=== PATIENT | female | born 1945 | race Two or more races ===

== ENCOUNTER 2024-09-14 11:08 | Inpatient (IN) | payer MEDICARE, MEDICAID, SELFPAY ==
[2024-09-14] VITALS (67 sets, daily range): BP systolic 68–149; BP diastolic 40–83; PULSE 84–122; RESP 10–29; TEMP 36.8–38.6; O2SAT 68–100; BMI 20.2; BMI 21.1
--- NOTE | 2024-09-14 11:07 | PD.EDAMS ---
Altered Mental Status RME/HPI General Chief Complaint: Altered Mental Status Stated Complaint: AMS RME / HPI RME / HPI narrative: 79 year old female with history of diabetes and liver cirrhosis presents to the ED BIBA from home for altered mental status today. Per medics, family on scene reported finding the patient altered and unresponsive this morning. On their arrival, patient was unresponsive, hot to touch, jaw clenched, and saturating 68% on room air. States they began bagging via BVM with improvement. Patient then placed on a 15L Oxy Mask and saturating 97%. Patient was last known well last night. Prehospital BS High , blood pressure 130/92, and HR 102. Family reported the medics that at baseline the patient gets up to walk in the mornings. 1140: I spoke with patients daughter at bedside. Reports at baseline the patient gets up in the mornings and walks around her home. This morning noted she did not get up and found to be unresponsive laying in bed with what appeared to be coffee ground drool coming from the mouth. Daughter additionally reported yesterday the patient was not getting out of bed as often as she normally does and last night chest sounded gurgly ; patient was given Robitussin prior to going to sleep. Related Data Home Medications ?Medication ?Instructions ?Recorded ?Confirmed metformin 850 mg tablet 850 mg PO QDAY 01/23/19 02/25/24 donepezil 10 mg tablet 10 mg PO QDAY 10/20/19 02/25/24 escitalopram oxalate 20 mg tablet 20 mg PO QDAY 10/20/19 02/25/24 (Lexapro) spironolactone 50 mg tablet 50 mg PO QDAY 10/20/19 02/25/24 (Aldactone) ursodiol 300 mg capsule 300 mg PO BID 10/20/19 02/25/24 gabapentin 300 mg capsule 300 mg PO BID 01/06/21 02/25/24 lactulose 10 gram/15 mL oral 30 ml PO BID 01/06/21 02/25/24 solution montelukast 10 mg tablet 10 mg PO QDAY 01/06/21 02/25/24 pantoprazole 20 mg tablet,delayed 20 mg PO DAILY 01/06/21 02/25/24 release rifaximin 550 mg tablet (Xifaxan) 550 mg PO BID 01/06/21 02/25/24 Previous Rx's ?Medication ?Instructions ?Recorded nystatin 100,000 unit/gram topical 1 applic topical QDAY #15 grams 06/09/23 powder cephalexin 500 mg capsule 500 mg PO QID #40 caps 02/21/24 Allergies Allergy/AdvReac Type Severity Reaction Status Date / Time adhesive tape Allergy Verified 02/24/24 23:38 Review of Systems Review of Systems ROS Unobtainable: unobtainable due to mental status Past Medical History Past Medical History NEUROLOGIC: Positive Peripheral Neuropathy CARDIAC: Positive Hypercholesterolemia and Hypertension RESPIRATORY: Positive Bronchitis, Pneumonia and Sleep Apnea (has cpap) GASTROINTESTINAL: Positive Gastrointestinal Disorders, Cirrhosis, Gall Bladder Disease, Esophageal Varices and Gastroesophageal Reflux Disease MUSCULOSKELETAL: Positive Musculoskeletal Disorders and Osteoporosis ENT: Positive Cataracts ENDOCRINE: Positive Endocrine Disorders and Diabetes Mellitus Type 2 HEMATOLOGIC: Positive Blood Disorders and Anemia PSYCHO/SOCIAL: Positive Depression and Anxiety OTHER HISTORY: Positive Hospitalization, Chicken Pox, Measles and Mumps Family History FAMILY HISTORY: Negative Family Psychiatric Problems, Family Respiratory Disorders, Family Cardiac Disorders, Family Gastrointestinal Problems, Family Cancer, Family Surgery or Family Anesthesia Reaction Surgical History SURGICAL: Positive Throat Surgery, Hysterectomy and Section Social History SMOKING STATUS: Never smoker SECOND HAND EXPOSURE: No SUBSTANCE USE: does not use ED Exam Narrative Physical exam: GENERAL APPEARANCE: On arrival to the emergency department, patient is altered, unresponsive, nonverbal. VITALS: All vitals were reviewed, patient is febrile at 101.4F rectally. The pulse ox is 74% on room air which is hypoxic, 100% on mechanical ventilator. HEENT: Normocephalic, atramatic, no spontaneous eye movements, EACs are patent. There is no bulge or retraction. Coffee ground emesis in mouth. Moist oromucosa. No jaundice. NECK: Supple, no JVD or bruits. CARDIOVASCULAR: Heart regular without S3-S4 or murmur. No rubs or gallops. LUNGS/CHEST: Rhonchi bilaterally, agonal breathing. No rales, rhonchi, or wheezing. ABDOMEN: Soft, nontender, with normal bowel sounds. No pulsatile masses. No rebound, rigidity, or guarding. No incarcerated hernia. EXTREMITIES: No edema, clubbing, or cyanosis. Intact CSM SKIN: Warm and dry without rashes. Normal inspection. MUSCULOSKELETAL: No gross deformity. NEURO: GCS 7, on arrival patient is altered, unresponsive, nonverbal, no eye movements, minimal retraction on stimulation of hands and feet. Course Quality Measures Current suspected stage: sepsis Possible source: pulmonary Blood cultures ordered: completed in ED Antibiotic ordered: Yes Pertinent labs: 09/14/24 11:52 Lactic Acid 12.5 H* mMol/L (0.4-2.0) Procalcitonin 1.51 H ng/ml (0.0-0.49) sepsis Orders Category Date Time Status 24 HR Medical Restraints Q2HR Care 09/14/24 11:24 Active Bedside COVID-19 Antigen Test NOW Care 09/14/24 11:33 Active Bedside Influenza A&B Antigen Test NOW Care 09/14/24 11:36 Completed EKG (ED ONLY) *Do not use* NOW Care 09/14/24 11:47 Completed Joshi [Urinary Catheter] QS Care 09/14/24 11:24 Active Joshi [Urinary Catheter] QS Care 09/14/24 11:33 Completed Insert NG / OG tube NOW Care 09/14/24 11:25 Active Intubation NOW Care 09/14/24 11:23 Completed Intubation NOW Care 09/14/24 11:51 Completed Occult Blood,Stool (Nursing) NOW Care 09/14/24 11:[address] chest abdomen pelvis wo Stat Exams 09/14/24 11:[address] head/brain wo con Stat Exams 09/14/24 11:33 Completed EKG (ED Only) Stat Exams 09/14/24 11:47 Draft XR chest 1V portable Stat Exams 09/14/24 11:23 Completed ABG [Arterial Blood Gas] Stat Lab 09/14/24 11:43 Ordered ABO/RH Type Stat Lab 09/14/24 11:52 Completed Alcohol, Blood Medical Stat Lab 09/14/24 11:52 Completed Ammonia Stat Lab 09/14/24 11:52 Completed Arterial Blood Gas Stat Lab 09/14/24 13:24 Completed BNP [B-Type Natriuretic Peptide] Stat Lab 09/14/24 11:52 Completed Blood Culture (Lab) Stat Lab 09/14/24 11:50 Received CBC Stat Lab 09/14/24 11:52 Completed Comprehensive Metabolic Panel Stat Lab 09/14/24 11:52 Completed Drug Screen,Urine Stat Lab 09/14/24 12:00 Completed Ketone [Beta Hydroxybutyrate] Stat Lab 09/14/24 11:52 Completed Lactic Acid [Lactate (Lactic Acid)] Stat Lab 09/14/24 11:52 Results Occult Blood, Stool (LAB) Stat Lab 09/14/24 11:00 Completed PTT [Partial Thromboplastin Time] Stat Lab 09/14/24 11:52 Completed Procalcitonin Stat Lab 09/14/24 11:52 Completed Prothrombin Time with INR Stat Lab 09/14/24 11:52 Completed Sputum Culture and Gram Stain Routine Lab 09/14/24 14:11 Received Troponin I Stat Lab 09/14/24 11:52 Completed UA, C/S IF [Urinalysis, C/S if Indicated] Stat Lab 09/14/24 12:00 Completed Urine Culture Stat Lab 09/14/24 12:00 Received Acetaminophen Supp [Tylenol Supp] Med 09/14/24 11:33 Discontinued 650 mg KS X1 ONE Etomidate Inj [Amidate Inj] Med 09/14/24 11:06 Discontinued 20 mg IVP X1 ONE Insulin Reg 100 Units/100 ml [Myxredlin] Med 09/14/24 13:04 Active 100 unit in 100 ml IV 0.1 unit/kg/hr Insulin Regular Med 09/14/24 11:39 Discontinued 4.5 unit IV X1 ONE Ringers Lactated 1000 ml [Lactated Ringers] 1,000 ml Med 09/14/24 14:15 Active IV 999 mls/hr Sodium Chloride 0.9% 1000 ml [Ns] 1,350 ml Med 09/14/24 11:34 Discontinued IV 999 mls/hr Sodium Chloride Rt Paulina 10% [NS Rt Paulina 10%] Med 09/14/24 11:51 Discontinued 5 ml INH X1 ONE Sterile Water 10 ml Med 09/14/24 11:04 Discontinued .ROUTE .STK-MED Sterile Water 10 ml Med 09/14/24 11:12 Discontinued .ROUTE .STK-MED Vecuronium Inj [Norcuron Inj] Med 09/14/24 11:14 Discontinued 20 mg IV X1 ONE Vecuronium Inj [Norcuron Inj] Med 09/14/24 11:04 Discontinued 40 mg .ROUTE .STK-MED ONE Vecuronium Inj [Norcuron Inj] Med 09/14/24 11:06 Discontinued 40 mg IV X1 ONE cefTRIAXone/D5w 1gm IV premix [Rocephin/D5w 1gm IV Med 09/14/24 11:35 Discontinued premix] 50 ml IV X1 Sputum Induction PRN RT 09/14/24 12:00 Ordered Volume Ventilator Stat RT 09/14/24 11:51 Active Vital Signs Vital signs: Vital Signs Pulse Rate 122 H 09/14/24 11:05 Respiratory Rate 13 09/14/24 11:05 Pulse Oximetry (%) 100 09/14/24 11:05 Oxygen Delivery Method Ambu-Bag 09/14/24 11:05 Procedures -ED Intubation sedative: Etomidate Mg Given: 20 paralytic: Vecuronium Mg Given: 20 Laryngoscope: fiber optic video scope Assist Device Used: fiber optic device ET Tube Size: 7.5 ET Tube Uncuffed: No Tube Secured Depth (cm): 21 Tube Secured Location: teeth Tube Placement Confirmation: visualized tube passing through cords, equal breath sounds bilaterally, no breath sounds over epigastrium and confirmation by capnometry Patient Tolerated Procedure: well and no complications Intubation Complications: none Altered Mental Status MDM Narrative MDM Narrative:: Kimber Beavers am scribing for and in the presence of Dr. Josue. The patient presented to the emergency department, having been brought in by ambulance from home. Patient was GCS of 7. No spontaneous eye opening. Positive for spontaneous movement of arms and legs. But nonverbal. And she was breathing agonal he. With an O2 saturation of 70 something percent on room air. Therefore she need to be intubated. The patient was given etomidate 20 mg IV followed by vecuronium 20 mg IV. The patient was intubated with a size 7-1/2 ET tube. ET tube was inserted by by the glleidoscope technique. Positive for CO2 hand-held monitor color change. O2 saturation went up to as high as 100% on the vent. Both lungs well-expanded accordingly. And there is no stomach air bubble. Follow-up chest x-ray showing that the ET tube and OG tube were both in good position. There is a scatter what appeared to be infiltrates. Heart is borderline. Mediastinum is normal. No pneumothorax. No broken bones. Patient was found to have a temperature 101.4. An septic alert was called for. And treatment plan was accordingly including IV fluid, IV antibiotics and Tylenol. From which she did very well. We also noticing that the patient had coffee-ground material in her mouth and on the lips. This is confirmed by the patient's daughter. Rectal examination was done in the presence of female RN. It shows a yellow stool. Guaiac was negative for blood. Twelve-lead EKG at 11:52 AM by me: Sinus rhythm. Heart rate 108. Normal axis. ST segment elevation in leads II, III, aVF and V1, V2, V3, V4, V5 and V6. 12 PM, I spoke to and discussed with Dr. Miramontes, crop duster helper on-call. He said that patient is not a candidate for the cardiac Disability Case Manager. We can go ahead and admit the patient here to our ICU. And he will continue to consult. 1200: Heart alert activated. WBC count of 17,000. Sodium is 160 and chloride was 110 and BUN/creatinine are elevated with a creatinine of 2.8. Normal bicarb. Anion gap is high. Beta hydroxy is slightly elevated at 0.6. Blood sugar 739. Signifying that the patient had a severe diabetic hyperglycemia with mild ketone buildup. But no previous sign of DKA at this time. In any event patient did require some IV fluid which he was also given as part of the septic protocol. I am giving her some insulin and insulin drip. Toxicology negative. Alcohol level negative. Lactic acid was elevated and procalcitonin are elevated as expected by her presentation with sepsis. Troponin is 17. As expected with the EKG finding. Ammonia level is 111 as expected with symptomatology and liver cirrhosis status. 1:20 PM, I spoke to and discussed with Dr. Malone, engagement specialist on-call. She is here to evaluate the patient for admission. Patient is pending CT brain and CT chest abdomen and pelvic. 2:[address] brain [address] CT chest abdomen and pelvic have resulted. Please see report from Dr. Bipin Pearson. Basically it shows negative CT brain and positive for pneumonia and positive for cirrhosis of the liver. I spoke to Dr. Malone again. She has seen the patient and she has agreed to admit the patient for further evaluation and treatment in ICU. Thank very much Critical care time is approximately 45 minutes excluding any procedure. The high probability of sudden, clinically significant deterioration in the patient?s condition required the highest level of my preparedness to intervene urgently. The services I provided to this patient were to treat and/or prevent clinically significant deterioration. Services included the following: chart data review, reviewing nursing notes and/or old charts, documentation time, mgmt consultant collaboration regarding findings and treatment options, medication orders and management, direct patient care, vital sign assessments and ordering, interpreting and reviewing diagnostic studies and lab tests. Aggregate critical care time includes only time during which I was engaged in work directly related to the patient?s care, as described above, whether at bedside or elsewhere in the Emergency Department. It did not include time spent performing other reported procedures or the services of residents, students, nurses or physician assistants. Patient data External records reviewed:: EMS form Clinical information provided by:: EMS Social determinants that could affect healthcare access:: none Patient has the following chronic illnesses:: Liver cirrhosis, diabetes, dementia How is presenting disease/condition affected by chronic disease/condition?: exacerbated by Evaluation data The following diagnostics were reviewed and interpreted by me:: lab results, radiology exam(s) and EKG tracing(s) Lab and/or radiology exams considered but not ordered:: None Interpretation Summary: Ordering Physician: Mirza Josue MD Date of Service: 09/14/24 Procedure(s): XR chest 1V portable Accession Number(s): [id number] cc: Jose Hanson MD; Bipin Pearson MD; Mirza Josue MD~ Examination: AP chest single view Technique one AP portable supine chest single view Exam date and time: September 14, 2024 1141 hours Comparison August 28, 2019 INDICATIONS: Hypoxic respiratory failure postintubation today FINDINGS: Normal heart size Significant bilateral lung opacity Endotracheal tube tip 2.5 cm above jhonny The orogastric tube is in the stomach, the tip is below the level film Prominent osteopenia IMPRESSION: Significant bilateral pneumonia Endotracheal tube tip 2.5 cm above jhonny Dictated By: Bipin Pearson MD Signed By: <Electronically signed by Bipin Pearson MD in [place]> 09/14/24 1153 Ordering Physician: Mirza Josue MD Date of Service: 09/14/24 Procedure(s): CT head/brain wo con Accession Number(s): [id number] cc: Jose Hanson MD; Bipin Pearson MD; Mirza Josue MD~ Examination: CT brain head without contrast. 2-D sagittal coronal reconstructions Date and time of exam:September 14, 2024 1831 hours INDICATIONS: Altered mental status today, hypoxic respiratory failure postintubation CTDI: vol (mGy):44.6 DLP: (mGycm):851 Technique: Multiple CT axial sections of the brain have been obtained, 5 mm slice thickness. Contrast has not been administered. 2-D sagittal, coronal reconstructions have been obtained Low dose protocols were performed. One or more of the following dose reduction techniques were used; automated exposure control, adjustment of the mA and/or KV according to patient size, use of iterative reconstruction technique. Findings: No significant ventricular enlargement. Intra-axial or extra-axial hemorrhage density is not seen. No mass effect or midline shift Basal cisterns are not remarkable. Fourth ventricle is midline. Cranial vault intact. Small area encephalomalacia in the right frontal lobe, small right frontal calcification 3 mm Impression: Negative for acute hemorrhage, mass effect or midline shift If symptoms persist, consider brain MRI follow-up stroke protocol Dictated By: Bipin Pearson MD Signed By: <Electronically signed by Bipin Pearson MD in [place]> 09/14/24 1354 Ordering Physician: Mirza Josue MD Date of Service: 09/14/24 Procedure(s): CT chest abdomen pelvis wo Accession Number(s): [id number] cc: Jose Hanson MD; Bipin Pearson MD; Mirza Josue MD~ Examination: CT chest, without intravenous contrast. CT abdomen, without intravenous contrast. CT pelvis, without intravenous contrast. 2-D sagittal and coronal reconstructions. 3-D reconstructions. Date and time of exam:September 14, 2024 1336 hours INDICATIONS: Sepsis, unknown etiology today, altered mental status, hypoxic respiratory failure postintubation CTDI vol (mgy) 7.02 DLP (MGycm)477 Technique: Multiple CT images, 3.0 mm slice thickness, obtained chest, abdomen, pelvis, with the high-resolution 64 slice scanner.. Sagittal and coronal 2-D reconstructions are obtained. 3-D reconstructions Low dose protocols were performed. One or more of the following dose reduction techniques were used; automated exposure control, adjustment of the mA and/or KV according to patient size, use of iterative reconstruction technique. Findings: Tracheal tube tip 14 cm above jhonny No thoracic aortic aneurysm dilatation No paratracheal tracheobronchial or bronchopulmonary adenopathy Bilateral pneumonia, prominent at the lung bases Cirrhosis, liver irregular in contour Prominent splenomegaly Portosystemic collateral vessels medial to the spleen Orogastric tube in the stomach No pancreatic or adrenal mass No hydronephrosis Aorta is not enlarged Normal appendix Anteverted uterus Urinary bladder contracted around a Josih catheter Thickening of the rectal wall Severe osteopenia, advanced disc narrowing L3-L4 IMPRESSION: Bilateral pneumonia, significant at the lung bases Cirrhosis Prominent splenomegaly Portal hypertension No abdominal or pelvic abscess Dictated By: Bipin Pearson MD Signed By: <Electronically signed by Bipin Pearson MD in [place]> 09/14/24 1359 Medications / Prescriptions Medications or Prescriptions considered but not ordered:: None Medication administrations:: Medication Administration History Insulin Human Regular (Myxredlin) 100 unit in 100 mls @ 4.536 mls/hr IV .Q22H3M PRN; Protocol PRN Reason: PER PROTOCOL Stop: 10/14/24 13:03 Lactated Ringer's (Lactated Ringers) 1,000 mls @ 999 mls/hr IV .Q1H1M ONE Stop: 09/14/24 15:15 Last Admin: 09/14/24 14:20 Dose: 999 mls/hr Documented By: EH Discontinued Medications Acetaminophen (Acetaminophen Supp 650 Mg Supp) 650 mg KS X1 ONE Stop: 09/14/24 11:34 Last Admin: 09/14/24 12:14 Dose: 650 mg Documented By: KM Etomidate (Etomidate Inj 2 Mg/Ml Vial 10 Ml) 20 mg IVP X1 ONE Stop: 09/14/24 11:07 Last Admin: 09/14/24 11:26 Dose: 20 mg Documented By: Admin: 09/14/24 11:13 Dose: 20 mg Documented By: LUIS Sterile Water (Sterile Water) Confirm Administered Dose 10 mls @ ud .ROUTE .ST-MED ONE Stop: 09/14/24 11:05 Last Admin: 09/14/24 11:27 Dose: Not Given Documented By: LUIS Non-Admin Reason: Duplicate Medication on eMAR Sterile Water (Sterile Water) Confirm Administered Dose 10 mls @ ud .ROUTE .ST-MED ONE Stop: 09/14/24 11:13 Last Admin: 09/14/24 11:26 Dose: Not Given Documented By: LUIS Non-Admin Reason: Duplicate Medication on eMAR Sodium Chloride (Ns) 1,350 mls @ 999 mls/hr IV .Q1H22M ONE Stop: 09/14/24 12:55 Last Infusion: 09/14/24 14:13 Dose: Infused Documented By: Admin: 09/14/24 12:13 Dose: 999 mls/hr Documented By: LUIS Ceftriaxone Sodium/Dextrose (Rocephin/D5w 1gm Iv Premix) 50 mls @ 100 mls/hr IV X1 ONE Stop: 09/14/24 12:04 Last Infusion: 09/14/24 12:55 Dose: Infused Documented By: Admin: 09/14/24 12:14 Dose: 100 mls/hr Documented By: LUIS Insulin Human Regular (Insulin Hum Regular 1 Unit/0.01 Ml (Per Unit)) 4.5 unit 0.1 unit/kg (4.5 unit) IV X1 ONE Stop: 09/14/24 11:40 Last Admin: 09/14/24 12:11 Dose: 4.5 unit Documented By: LUIS Co-signed By: JILLIAN Sodium Chloride (Sodium Chloride Rt 10% 15 Ml Nebu) 5 ml INH X1 ONE Stop: 09/14/24 11:52 Vecuronium Elbert (Vecuronium Inj 10 Mg Vial) 40 mg IV X1 ONE Stop: 09/14/24 11:07 Last Admin: 09/14/24 11:26 Dose: Not Given Documented By: LUIS Non-Admin Reason: Duplicate Medication on eMAR Vecuronium Elbert (Vecuronium Inj 10 Mg Vial) Confirm Administered Dose 40 mg .ROUTE .STK-MED ONE Stop: 09/14/24 11:05 Last Admin: 09/14/24 11:27 Dose: Not Given Documented By: LUIS Non-Admin Reason: Duplicate Medication on eMAR Vecuronium Elbert (Vecuronium Inj 10 Mg Vial) 20 mg IV X1 ONE Stop: 09/14/24 11:15 Last Admin: 09/14/24 11:14 Dose: 20 mg Documented By: LUIS Co-signed By: CHIDI See above Consultations Consultation(s) initiated? (list below): Yes Consultation #1 (Physician, Specialty, Details): I spoke with crop duster helper Dr. Miramontes. Discussed patients PMHx, HPI, ED course, exam findings, labs, and radiology results. States at this time does not think the patient is a candidate for mobile lab technician. Time: 12:02 Consultation #2 (Physician, Specialty, Details): I spoke with chopper gun operator Dr. Malone. Discussed patients PMHx, HPI, ED course, exam findings, labs, and radiology results as noted above. Diagnosis Most likely diagnosis given after review of the tests above:: Sepsis AMS ST elevation NM Acute kidney injury Diabetes Coffee ground emesis UTI Admission Indicated Admission indicated?: indicated Admission Request Was there a request for admission?: Yes Admission Attestation Admission request attestation: Discussed case with [] from Hospitalist service regarding admission. Discussed patients ED course, exam findings, labs, and radiology results. The Hospitalist [agrees,declines] to accept the patient for admission. Disposition Plan Disposition Plan: Admit Critical Care Time Critical Care Time Critical Care Time: Yes Total Critical Care Time (min.): 45 Attestation: The high probability of sudden, clinically significant deterioration in the patient's condition required the highest level of my preparedness to intervene urgently. The services I provided to this patient were to treat and/or prevent clinically significant deterioration. Services included the following: chart data review, reviewing nursing notes and/or old charts, documentation time, mgmt consultant collaboration regarding findings and treatment options, medication orders and management, direct patient care, vital sign assessments and ordering, interpreting and reviewing diagnostic studies and lab tests. Aggregate critical care time includes only time during which I was engaged in work directly related to the patient's care, as described above, whether at bedside or elsewhere in the Emergency Department. It did not include time spent performing other reported procedures or the services of residents, students, nurses or physician assistants. Discharge Plan Plan Patient Disposition: Admit Acute Care w/in Hospital Disposition Comment: Stable and improved for admission Prescriptions/Referrals Prescriptions/Med Rec: No Action metformin 850 mg Tablet 850 mg PO QDAY gabapentin 300 mg Capsule 300 mg PO BID montelukast 10 mg Tablet 10 mg PO QDAY lactulose 10 gram/15 mL Solution 30 ml PO BID Xifaxan 550 mg Tablet 550 mg PO BID pantoprazole 20 mg Tablet,Delayed Release (Dr/Ec) 20 mg PO DAILY donepezil 10 mg Tablet 10 mg PO QDAY ursodiol 300 mg Capsule 300 mg PO BID spironolactone [Aldactone] 50 mg Tablet 50 mg PO QDAY escitalopram oxalate [Lexapro] 20 mg Tablet 20 mg PO QDAY nystatin 100,000 unit/gram powder 1 applic topical QDAY Qty: 15 0RF cephalexin 500 mg capsule 500 mg PO QID Qty: 40 0RF Referrals: Jose Hanson MD [Primary Care Provider] - In 1 week Problem List Clinical Impression: Sepsis, AMS (altered mental status), ST elevation NM (STEMI), Acute kidney injury, Diabetes mellitus out of control, Coffee ground emesis, Urinary tract infection Patient/Caregiver Discharge Instructions Print Language: Albanian Stand Alone Forms: Lizbeth Award Info., Patient Portal Info Letter
[2024-09-14] MEDS: ETOMIDATE INJ 2 MG/ML VIAL 10 ML 20 MG IVP ×2 (11:13→11:26)
[2024-09-14] MEDS: VECURONIUM 10 MG 20 MG IV (11:14)
--- NOTE | 2024-09-14 11:17 | PC.NURSE ---
Dr. Josue with [facility] adnd [facility] to assist and attempt intubation at this time
--- NOTE | 2024-09-14 11:23 | XR_ITS ---
Examination: AP chest single view Technique one AP portable supine chest single view Exam date and time: September 14, 2024 1141 hours Comparison August 28, 2019 INDICATIONS: Hypoxic respiratory failure postintubation today FINDINGS: Normal heart size Significant bilateral lung opacity Endotracheal tube tip 2.5 cm above jhonny The orogastric tube is in the stomach, the tip is below the level film Prominent osteopenia IMPRESSION: Significant bilateral pneumonia Endotracheal tube tip 2.5 cm above jhonny
--- NOTE | 2024-09-14 11:30 | PC.NURSE ---
Daughter María at bedside states patient was unresponsive and called ambulance right away.
--- NOTE | 2024-09-14 11:33 | XR_ITS ---
Examination: CT brain head without contrast. 2-D sagittal coronal reconstructions Date and time of exam:September 14, 2024 1831 hours INDICATIONS: Altered mental status today, hypoxic respiratory failure postintubation CTDI: vol (mGy):44.6 DLP: (mGycm):851 Technique: Multiple CT axial sections of the brain have been obtained, 5 mm slice thickness. Contrast has not been administered. 2-D sagittal, coronal reconstructions have been obtained Low dose protocols were performed. One or more of the following dose reduction techniques were used; automated exposure control, adjustment of the mA and/or KV according to patient size, use of iterative reconstruction technique. Findings: No significant ventricular enlargement. Intra-axial or extra-axial hemorrhage density is not seen. No mass effect or midline shift Basal cisterns are not remarkable. Fourth ventricle is midline. Cranial vault intact. Small area encephalomalacia in the right frontal lobe, small right frontal calcification 3 mm Impression: Negative for acute hemorrhage, mass effect or midline shift If symptoms persist, consider brain MRI follow-up stroke protocol
--- NOTE | 2024-09-14 11:33 | XR_ITS ---
Examination: CT chest, without intravenous contrast. CT abdomen, without intravenous contrast. CT pelvis, without intravenous contrast. 2-D sagittal and coronal reconstructions. 3-D reconstructions. Date and time of exam:September 14, 2024 1336 hours INDICATIONS: Sepsis, unknown etiology today, altered mental status, hypoxic respiratory failure postintubation CTDI vol (mgy) 7.02 DLP (MGycm)477 Technique: Multiple CT images, 3.0 mm slice thickness, obtained chest, abdomen, pelvis, with the high-resolution 64 slice scanner.. Sagittal and coronal 2-D reconstructions are obtained. 3-D reconstructions Low dose protocols were performed. One or more of the following dose reduction techniques were used; automated exposure control, adjustment of the mA and/or KV according to patient size, use of iterative reconstruction technique. Findings: Tracheal tube tip 14 cm above jhonny No thoracic aortic aneurysm dilatation No paratracheal tracheobronchial or bronchopulmonary adenopathy Bilateral pneumonia, prominent at the lung bases Cirrhosis, liver irregular in contour Prominent splenomegaly Portosystemic collateral vessels medial to the spleen Orogastric tube in the stomach No pancreatic or adrenal mass No hydronephrosis Aorta is not enlarged Normal appendix Anteverted uterus Urinary bladder contracted around a Joshi catheter Thickening of the rectal wall Severe osteopenia, advanced disc narrowing L3-L4 IMPRESSION: Bilateral pneumonia, significant at the lung bases Cirrhosis Prominent splenomegaly Portal hypertension No abdominal or pelvic abscess
--- NOTE | 2024-09-14 11:35 | PC.NURSE ---
xray at bedside
--- NOTE | 2024-09-14 11:47 | EKG_ITS ---
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[id number] Requested By: Mirza Josue Order Number: [id number] Reading MD: Mirza Josue Measurements Intervals [place] Rate: 110 P: 59 IL: 149 QRS: 49 QRSD: 68 T: 75 QT: 337 QTc: 456 Interpretive Statements SINUS TACHYCARDIA LOW QRS VOLTAGE IN PRECORDIAL LEADS [QRS DEFLECTION < 1.0 mV IN CHEST LEADS] MARKED ST ELEVATION, CONSIDER INFERIOR INJURY [MARKED ST ELEVATION W/O NORMALLY INFLECTED T WAVE IN II/aVF] MARKED ST ELEVATION, CONSIDER ANTEROSEPTAL INJURY [MARKED ST ELEVATION W/O NORMALLY INFLECTED T WAVE IN V1-V4] ACUTE PA Compared to ECG 01/06/2021 14:45:28 Low QRS voltage now present ST (T wave) deviation now present Myocardial infarct finding now present Sinus bradycardia no longer present T-wave abnormality no longer present /store/S0/[id number].pdf
--- NOTE | 2024-09-14 11:52 | PC.NURSE ---
[employer] at bedside performing ekg.
[2024-09-14 12:02] LABS: OBS Card Lot # 23001; OBS Developer Lot # 23003; OBS Performed By vasqk2; OBS QC OK? Yes; Occult Blood, Stool Positive (Negative)
[2024-09-14 12:03] LABS: Basophils # (Auto) 0.1 Thou/mm3 (0.0-0.2); Basophils % (Auto) 1 % (0-2.5); Eosinophils # (Auto) 0.1 Thou/mm3 (0.0-0.5); Eosinophils % (Auto) 1 % (0-10); Hematocrit 53.5 % (36.0-46.0); Hemoglobin 17.8 g/dL (12.0-16.0); Immature Granulocytes % (Auto) 1 % (0-0); Immature Granulocytes Auto 0.11 Thou/mm3 (0.00-0.00); Lymphocytes # (Auto) 0.4 Thou/mm3 (1.0-4.8); Lymphocytes % (Auto) 3 % (10-50); Mean Corpuscular HGB Conc 33.3 g/dl (31.0-37.0); Mean Corpuscular Hemoglobin 32.7 pg (25.0-35.0); Mean Corpuscular Volume 98 fL (80-100); Monocytes # (Auto) 0.5 Thou/mm3 (0.0-0.8); Monocytes % (Auto) 3 % (0-12); Neutrophils # (Auto) 15.3 Thou/mm3 (1.8-7.7); Neutrophils % (Auto) 92 % (37-80); Nucleated Red Blood Cell % 0 /100 WBC (0); Platelet Count 88 Thou/mm3 (140-440); RDW Standard Deviation 50.5 fL (36.4-46.3); Red Blood Count 5.45 Miln/mm3 (4.00-5.20); White Blood Count 16.6 Thou/mm3 (3.6-11.0)
[2024-09-14 12:07] LABS: Lactate (Lactic Acid) 12.5 mMol/L (0.4-2.0)
[2024-09-14 12:09] LABS: Beta Hydroxybutyrate 0.6 mmol/L (<0.6)
--- NOTE | 2024-09-14 12:10 | PC.NURSE ---
RECEIVED CALL FROM ARA IN LAB WITH CRITICAL LAB RESULTS. LACTIC ACID 12.5, BETAHYDROXY 0.6. ER DOCTOR MADE AWARE.
[2024-09-14 12:11] LABS: Collection Type, Urine Catheter
[2024-09-14] MEDS: INSULIN HUM REGULAR 1 UNIT/0.01 ML (PER UNIT) 4.5 UNIT IV (12:11)
[2024-09-14] MEDS: SODIUM CHLORIDE 0.9% 999 ML IV (12:13)
[2024-09-14] MEDS: cefTRIAXone/D5w 1gm IV premix 50 ML IV (12:14)
[2024-09-14] MEDS: ACETAMINOPHEN SUPP 650 MG SUPP PR (12:14)
[2024-09-14 12:15] LABS: Bacteria,Urine 2+; Bilirubin,Urine Negative (Negative); Blood,Urine Negative (Negative); Clarity,Urine Turbid (Clear/Hazy); Color,Urine Yellow (Lt Yel-Yel); Glucose, Urine 4+ (Negative); Ketones,Urine Trace (Negative); Leukocyte Esterase,Urine Positive (Negative); Nitrite,Urine Negative (Negative); PH,Urine 7.5 (5.0-7.0); Protein,Urine 1+ (Neg - Trace); RBC,Urine 5 /hpf (0-3); Specific Gravity,Urine 1.029 (1.001-1.035); Squamous Epithelial Cell,Urine 6 /hpf (0-5); Urobilinogen,Urine Negative mg/dL (0.0-1.0); WBC,Urine 33 /hpf (0-5)
[2024-09-14 12:16] LABS: Culture Indicated,Urine Yes
[2024-09-14 12:19] LABS: Amphetamine/Methamp Scrn,U Negative (Negative); Barbiturate Screen,Urine Negative (Negative); Benzodiazepines Screen,Urine Negative (Negative); Benzoylecgonine Screen, Ur Negative (Negative); Fentanyl Screen,Urine Negative (Negative); Opiate Screen,Urine Negative (Negative); THC Screen,Urine Negative (Negative)
[2024-09-14 12:23] LABS: Ammonia 111 uMol/L (11-32)
--- NOTE | 2024-09-14 12:34 | PC.NURSE ---
Called RT to help transport patient to ct on ventilator
[2024-09-14 12:44] LABS: Alanine Aminotransferase 38 U/L (10-49); Albumin, Serum 3.3 gm/dL (3.4-4.8); Albumin/Globulin Ratio 0.9 (1.2-2.2); Alcohol, Blood Medical < 3.0 mg/dL (0-10.0); Alkaline Phosphatase 177 U/L (46-116); Anion Gap 24 (7-16); Aspartate Amino Transferase 41 U/L (0-34); BUN/Creatinine Ratio 26 Ratio (12-20); Bilirubin,Total 2.6 mg/dL (0.3-1.2); Blood Urea Nitrogen 74 mg/dL (9-23); Calcium 10.7 mg/dL (8.3-10.6); Calcium (Corrected) 11.3 mg/dL (8.5-10.1); Carbon Dioxide 20.3 mMol/L (20.0-31.0); Chloride 116 mMol/L (98-107); Creatinine (Component) 2.8 mg/dL (0.6-1.3); Estimated Creatinine Clearance 11.7 mL/min (>60); Globulin 3.8 gm/dL (2.3-3.5); Osmolality,Calculated 374 (275-295); Procalcitonin 1.51 ng/ml (0.0-0.49); Sodium 160 mMol/L (136-145); Total Protein 7.1 gm/dL (5.7-8.2); eGFR 17 See Note
[2024-09-14 12:48] LABS: Glucose 739 mg/dL (74-106); Troponin I 17.116 ng/mL (0.0-0.045)
--- NOTE | 2024-09-14 13:26 | PC.NURSE ---
Patient gone to ct via [facility] cabrera on vent with RT present
[2024-09-14 13:27] LABS: B-Type Natriuretic Peptide 178 pg/mL (0-100)
[2024-09-14 13:31] LABS: Base Excess -5 (-3-3); HCO3 23 mEq/L (20-26); Inspired Oxygen, FIO2 100 %; O2 Saturation 101 % (91-98); PCO2 49 mmHg (32.0-48.0); PO2 307 mmHg (83-108); pH, Arterial 7.28 (7.35-7.45)
[2024-09-14 13:34] LABS: Allen Test Performed/OK; Puncture Site Left Radial
--- NOTE | 2024-09-14 13:56 | PC.NURSE ---
Dr. Malone, intensivists at bedside, states to hold insulin gtt for now.
--- NOTE | 2024-09-14 13:57 | PD.INTPROG ---
Documentation for date of: 09/14/24 Subjective Subjective Interval history: This is a 78yo F who was brought to the ER today for AMS. Apparently she was in her usual state of health until 48hrs ago. She was progressively weaker and unable to stand by herself. She developed a poor appetite with decreased PO intake. Per family she was afebrile however was incontinent of urine and stool. She is not usually incontinent of stool per family. Daughter denies n/v, fever/chills, chest pain/abd pain or additional sxs. Does note that the pt has a h/o dementia and has been more paranoid and aggressive as of late. This AM the pt was unresponsive and therefore EMS was called. In the ER she was noted to have a GCS of <8 and was hypoxic and therefore intubated. Labs showed an AG, an elevated LA and beta hydroxy, along with an elevated trop. EKG shows STEMI and CXR shows b/l infiltrate. PMH: DM, cirrhosis, dementia, depression, s/p cholecystectomy, s/p c section, noncompliant with meds PSH: lives with family at home, no h/o smoking/ETOH ROS: UTO Critical Care Note Critical care time (min.): 80 Exam Vital Signs Temp Pulse Resp BP Pulse Ox O2 Del Method FiO2 101.4 F H 108 H 14 121/61 98 Mechanical Ventilation 100 09/14/24 12:14 09/14/24 12:26 09/14/24 12:26 09/14/24 12:26 09/14/24 12:26 09/14/24 12:26 09/14/24 11:52 Narrative Exam Gen- intubated, unresponsive, GCS ~3T (M1, E1, V1) at this time however was recently intubated with vec and per bedside nurse had been moving LE spontaneously prior to intubation, elderly, frail, NAD HEENT- NC/AT, mucosa dry, ETT/OGT in place, sclera anicteric, PERRL, some blood noted in ETT Chest- LCTAB, HRRR, no increase in WOB Abd- s/nt/bs+, infraumbilical midline well healed surgical scar with some erythema present Ext- no edema, pulses palp, no clubbing, no mottling, fingernails unkempt, Vent AC VC Physical Exam Completion Physical Exam Complete?: Yes Objective - Epic Prelude Analyst Labs 09/15/24 03:32 09/15/24 03:32 Labs: Laboratory Results - last 24 hr 09/14/24 09/14/24 09/14/24 11:00 11:52 12:00 WBC 16.6 H RBC 5.45 H Hgb 17.8 H Hct 53.5 H MCV 98 MCH 32.7 MCHC 33.3 RDW Std Deviation 50.5 H Plt Count 88 L Neut % (Auto) 92 H Lymph % (Auto) 3 L [place] % (Auto) 3 Eos % (Auto) 1 Baso % (Auto) 1 Neut # (Auto) 15.3 H Lymph # (Auto) 0.4 L [place] # (Auto) 0.5 Eos # (Auto) 0.1 Baso # (Auto) 0.1 Immature Gran # (Auto) 0.11 H Absolute Nucleated RBC 0.00 Immature Gran % 1 H Nucleated RBC % 0 Puncture Site ABG pH ABG pCO2 ABG pO2 ABG HCO3 ABG O2 Saturation ABG Base Excess FiO2 Sodium 160 H Potassium 5.0 Chloride 116 H Carbon Dioxide 20.3 Anion Gap 24 H BUN 74 H Creatinine 2.8 H Estim Creat Clear Calc 11.7 L eGFR 17 L BUN/Creatinine Ratio 26 H Glucose 739 H* Calculated Osmolality 374 H Lactic Acid 12.5 H* Calcium 10.7 H Corrected Calcium 11.3 H Total Bilirubin 2.6 H AST 41 H ALT 38 Alkaline Phosphatase 177 H Ammonia 111 H* Troponin I 17.116 H* B-Natriuretic Peptide 178 H Total Protein 7.1 Albumin 3.3 L Globulin 3.8 H Albumin/Globulin Ratio 0.9 L Beta-Hydroxybutyrate/Acetoacetate 0.6 H Procalcitonin 1.51 H Ur Collection Type Catheter Urine Color Yellow Urine Clarity Turbid A Urine pH 7.5 H Ur Specific [place] 1.029 Urine Protein 1+ A Urine Glucose (UA) 4+ A Urine Ketones Trace Urine Blood Negative Urine Nitrite Negative Urine Bilirubin Negative Urine Urobilinogen (Auto) Negative Ur Leukocyte Esterase Positive Urine RBC 5 H Urine WBC 33 H Ur Squamous Epith Cells 6 H Urine Bacteria 2+ A Ur Culture Indicated? Yes Stool Occult Blood Positive A Urine Opiates Screen Negative Urine Fentanyl Screen Negative Ur Barbiturates Screen Negative U Amphetamin/Meth Scrn Negative U Benzodiazepines Scrn Negative U Cocaine Metab Screen Negative U Marijuana (THC) Screen Negative Ethyl Alcohol < 3.0 Blood Type O Positive Blood Bank Wristband ID Yes 09/14/24 13:24 WBC RBC Hgb Hct MCV MCH MCHC RDW Std Deviation Plt Count Neut % (Auto) Lymph % (Auto) [place] % (Auto) Eos % (Auto) Baso % (Auto) Neut # (Auto) Lymph # (Auto) [place] # (Auto) Eos # (Auto) Baso # (Auto) Immature Gran # (Auto) Absolute Nucleated RBC Immature Gran % Nucleated RBC % Puncture Site Left Radial ABG pH 7.28 L ABG pCO2 49 H ABG pO2 307 H ABG HCO3 23 ABG O2 Saturation 101 H ABG Base Excess -5 L FiO2 100 Sodium Potassium Chloride Carbon Dioxide Anion Gap BUN Creatinine Estim Creat Clear Calc eGFR BUN/Creatinine Ratio Glucose Calculated Osmolality Lactic Acid Calcium Corrected Calcium Total Bilirubin AST ALT Alkaline Phosphatase Ammonia Troponin I B-Natriuretic Peptide Total Protein Albumin Globulin Albumin/Globulin Ratio Beta-Hydroxybutyrate/Acetoacetate Procalcitonin Ur Collection Type Urine Color Urine Clarity Urine pH Ur Specific [place] Urine Protein Urine Glucose (UA) Urine Ketones Urine Blood Urine Nitrite Urine Bilirubin Urine Urobilinogen (Auto) Ur Leukocyte Esterase Urine RBC Urine WBC Ur Squamous Epith Cells Urine Bacteria Ur Culture Indicated? Stool Occult Blood Urine Opiates Screen Urine Fentanyl Screen Ur Barbiturates Screen U Amphetamin/Meth Scrn U Benzodiazepines Scrn U Cocaine Metab Screen U Marijuana (THC) Screen Ethyl Alcohol Blood Type Blood Bank Wristband ID Assessment & Plan Additional Assessment Additional Assessment: In summary this is a 78yo F admitted to the ICU with multiorgan failure currently intubated with PNA, hepatic encephalopathy, renal failure and STEMI a/p ONYX [employer] AMS- HCT is neg for bleed - likely multifactorial in origin and 2/2 sepsis, hyperNa and hepatic encephalopathy h/o dementia- hold home meds for now CV Dehydration- IVF STEMI- trops elevated at 17, bedside echo shows WMA with hypokinesia - EKG shows ST elevation - cards consult in ER and per ER discussion not a candidate for PCI - will d/w cards ? TNK -> pt noted to have a PLT count in the 70s - start on heparin/ASA/plavix - fu with formal echo Resp Acute hypoxic resp failure- pt was intubated upon arrival to the ER, adjust vent as needed - fu on ABG and CXR Acidosis- noted on ABG with elevated PCO2 -> vent adjustments PNA- started on abx - fu on cx - procal elevated Renal KETTY- likely prerenal in etiology - monitor i/os, pt severely dehydrated - IVF HyperNa- 2/2 dehydration, when corrected for glucose levels found to be in the 170s - attempt to correct no faster than ~8mEq /24hr - Na checks q4hrs HyperCa- 2/2 dehydration Lactic Acidosis- elevated LA of 12.5 on arrival - given IVF and trending down GI Cirrhosis 2/2 POP- started on lactulose q8hrs - ammonia elevated at 111 GI proph- PPI ? GIB- pt has a pos FOB in the ER in the setting of thrombocytopenia - daughter states stool in brown - Hb is elevated - at this time is not felt to have an active GIB Endo DKA/HHS- pt has severe hyperglycemia and some beta hydroxy present - received IVF in ER - fu with beta hydroxy and AG to eval need for insulin gtt - AG of 24 on arrival however ? if mostly 2/2 LA rather than beta hydroxy - repeat labs and if still elevated start DKA protocol with insulin gtt Heme Leukocytosis- 2/2 sepsis and aspiration PNA Polycythemia- 2/2 dehydration Thrombocytopenia- at baseline and in the setting of cirrhosis ID sepsis- started on abx, given 30cc/kg fluid bolus Aspiration- vanc/zosyn case d/w family at bedside and they are leaning towards no CPR d/w ER and ICU team labs, imaging, records reviewed ~80ccmin requiered to eval, exam, review, intervention, discussion and formulation of POC for this critically ill pt with STEMI and resp failure at high risk for further and ongoing decompensation Provider Notation Provider Notation: Although this document has been carefully reviewed, there may still be some phonetic and other typographical errors. These errors are purely grammatical due to imperfections in the software program and should not be construed in any way to compromise the substance of the patient's medical care during this visit. Thank you for the opportunity and privilege in assisting you with this patient's care and management.
--- NOTE | 2024-09-14 14:11 | PC.NURSE ---
Dr. Malone at bedside and increased rate 20 and decreased FiO2 to 60% on Vent, Dr. Malone speaking with patients daughter María at bedside.
[2024-09-14] MEDS: RINGERS LACTATED 1000 ML 1,000 ML 999 ML IV (14:20)
[2024-09-14 14:24] LABS: INR 1.3 (0.9-1.3); Partial Thromboplastin Time 26.5 Seconds (22.0-36.0); Prothrombin Time 13.8 Seconds (9.0-12.2)
[2024-09-14 14:59] LABS: Reflex Lactate? Y
--- NOTE | 2024-09-14 15:32 | PC.NURSE ---
Floresita, patient's daughter at bedside with patient, aware of plan of care and awaiting other family members to speak with intensivists regarding code status and plan of care.
[2024-09-14 15:34] LABS: Lactic Acid, 3 HR 8.5 mMol/L (0.4-2.0)
[2024-09-14 15:56] LABS: Sodium 163 mMol/L (136-145)
--- NOTE | 2024-09-14 16:28 | ESCONSULT_ITS ---
HPI Data of Consult Requesting Physician: Didi Malone MD Primary Care Provider: Jose Hanson MD Consult Narrative History of present illness: This is a 78yo F with PMX of DM/ Liver diseases / dementia pt was seen in the ER with unresponsiveness ; GCS , <8 She was progressively weaker and unable to stand by herself. She developed a poor appetite with decreased PO intake. This AM the pt was unresponsive and therefore EMS was called. In the ER she was noted to have a GCS of <8 and was hypoxic and therefore intubated. Labs showed an AG, an elevated LA and beta hydroxy, along with an elevated trop. EK CXR shows b/l infiltrate. elevated amonia EKG showed ST elevation in inferior and anterolateral - troponin so far peaked 17 cc:: cc: Didi Malone MD Meds Home Medications and Allergies Home Medications ?Medication ?Instructions ?Recorded ?Confirmed ?Type metformin 850 mg tablet 850 mg PO QDAY 01/23/19 02/25/24 History donepezil 10 mg tablet 10 mg PO QDAY 10/20/19 02/25/24 History escitalopram oxalate 20 mg tablet 20 mg PO QDAY 10/20/19 02/25/24 History (Lexapro) spironolactone 50 mg tablet 50 mg PO QDAY 10/20/19 02/25/24 History (Aldactone) ursodiol 300 mg capsule 300 mg PO BID 10/20/19 02/25/24 History gabapentin 300 mg capsule 300 mg PO BID 01/06/21 02/25/24 History lactulose 10 gram/15 mL oral 30 ml PO BID 01/06/21 02/25/24 History solution montelukast 10 mg tablet 10 mg PO QDAY 01/06/21 02/25/24 History pantoprazole 20 mg tablet,delayed 20 mg PO DAILY 01/06/21 02/25/24 History release rifaximin 550 mg tablet (Xifaxan) 550 mg PO BID 01/06/21 02/25/24 History Allergies Allergy/AdvReac Type Severity Reaction Status Date / Time adhesive tape Allergy Verified 02/24/24 23:38 Exam Vital Signs Temp Pulse Resp BP Pulse Ox O2 Del Method FiO2 100.1 F 91 20 109/40 L 96 Mechanical Ventilation 40 09/14/24 15:25 09/14/24 15:26 09/14/24 14:51 09/14/24 14:51 09/14/24 14:51 09/14/24 14:51 09/14/24 14:51 Routine HEENT Exam Head: Present normocephalic and atraumatic Eye: Present EOMI and PERRL ENT: Present mucous membranes moist Routine Neck Exam Neck: Present supple and trachea midline Routine Respiratory Exam Respiratory: Present chest non-tender, lungs clear, normal breath sounds and no resp distress Routine Cardiovascular Exam Cardiovascular: Present RRR Routine Abdominal Exam Abdominal: Present soft and normoactive bowel sounds Routine Extremities Exam Extremities: Present full ROM Routine Skin Exam Skin: Present intact, dry and warm Results Labs 09/14/24 11:52 09/14/24 15:29 Labs: Short CBC 09/14/24 Range/Units 11:52 WBC 16.6 H (3.6-11.0) Thou/mm3 Hgb 17.8 H (12.0-16.0) g/dL Hct 53.5 H (36.0-46.0) % Plt Count 88 L (140-440) Thou/mm3 BMP 09/14/24 09/14/24 11:52 15:29 Sodium 160 H 163 H* Potassium 5.0 Chloride 116 H Carbon Dioxide 20.3 BUN 74 H Creatinine 2.8 H Glucose 739 H* Calcium 10.7 H Cardiac Enzymes 09/14/24 Range/Units 11:52 Troponin I 17.116 H* (0.0-0.045) ng/mL Liver Function 09/14/24 Range/Units 11:52 Total Bilirubin 2.6 H (0.3-1.2) mg/dL AST 41 H (0-34) U/L ALT 38 (10-49) U/L Alkaline Phosphatase 177 H (46-116) U/L Albumin 3.3 L (3.4-4.8) gm/dL Urine 09/14/24 Range/Units 12:00 Urine Color Yellow (Lt Yel-Yel) Urine Clarity Turbid A (Clear/Hazy) Urine pH 7.5 H (5.0-7.0) Ur Specific [place] 1.029 (1.001-1.035) Urine Protein 1+ A (Neg - Trace) Urine Glucose (UA) 4+ A (Negative) ABG Interpretation ABG results: 09/14/24 13:24 ABG pH 7.28 L ABG pCO2 49 H ABG pO2 307 H ABG HCO3 23 ABG O2 Saturation 101 H ABG Base Excess -5 L Assessment and Plan Assessment and plan (1) ST elevation NH (STEMI): Status: Acute (2) AMS (altered mental status): Status: Acute (3) Sepsis: Status: Acute (4) Diabetes 1.5, managed as type 2: Status: Acute (5) Cirrhosis of liver: Status: Acute (6) Lactic acid acidosis: Status: Acute (7) Hypernatremia: Status: Acute (8) Acute renal failure: Status: Acute Additional Assessment & Plan Additional Plan: pt appears to have acute NH ; most porbably STEMI - but more than 12 hours old ; also has sever cormorbidities - GCS <8 not a candidate for primary angioplasty since its more than 12-18 hours old pt not a candidate for thrombolytics continue heparin / asa/ plavid/ treatment for comorbidities - echo to be done prognosis guarded
[2024-09-14] MEDS: PANTOPRAZOLE INJ 40 MG VIAL IVP (16:40)
[2024-09-14] MEDS: PIPER/TAZO 3.375 GM 50 ML IV ×2 (16:40→20:48)
[2024-09-14] MEDS: CLOPIDOGREL BISULFATE 75 MG TABLET PO (16:40)
[2024-09-14] MEDS: HEPARIN SOD INJ 5000 UNIT/ML VIAL 2700 UNIT IV (16:41)
[2024-09-14] MEDS: Heparin/D5w 25K 250 ML Ivpb 25,000 UNIT/250 ML BAG 5.443 UNIT IV (16:42)
--- NOTE | 2024-09-14 16:50 | ESHP_ITS ---
<Statement entered by Parth Lubin - 09/14/24 21:14> Senior attestation: Patient was examined and case was reviewed with team including attending physician. Note reviewed, I agree with most of its contents and agree with the patient's care. 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 At time of examination in the ED, patient was intubated and under mechanical ventilation, history was obtained by patient's daughter and decision maker Daphney at bedside. Patient was noted to have become lethargic the day prior to admission, no inciting factors or sick contacts were reported. Per daughter, patient is noted to be at times noncompliant with medications, does not take medications every day. In the ED, water truck driver Dr. Miramontes was consulted and did not advise catheterization at this time given patient's critical condition. We will admit the patient to the ICU for further evaluation and management of ST elevation myocardial infarction, hyponatremia, hyperglycemia, and encephalopathy which may be hepatic versus toxic versus metabolic in origin. Cardiology team was contacted, does not advise tPA at this time, will continue to trend troponin levels and order an echo, will start heparin drip, aspirin, and plavix. Will continue mechanical ventilation and start broad-spectrum IV antibiotics with Zosyn and vancomycin, sputum cultures, blood cultures and MRSA nasal screen to be completed. Given history of cirrhosis and hyperammonia findings, will start lactulose 10 mg 3 times daily as well as rifaximin and IV Protonix for GI prophylaxis. Repeat labs were completed when patient arrived to the ICU, we will not start IV insulin and instead treat hyperglycemia with subcutaneous insulin every 2 hours. For hyponatremia findings, will assess sodium checks every 4 hours with a goal of 6?8 mmol/L in first 24 hours, will start IV NS maintenance fluids and keep close monitoring of sodium checks. After admission to ICU, discussion was held between patient's family including decision makearoldo Shelley as well as the ICU resident physician team, decision was made to switch CODE STATUS to DNR/DNI (see separate event note). Will continue medical management and change code status to DNR/DNI to respect patient's family's decision. Prath Lubin, DO PGY-3 Documentation for date of: 09/14/24 HPI History of Present Illness Chief complaint: Altered mental status History of present illness: Ms. 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 Most of patient's history is obtained from patient's daughter Daphney at bedside, per patient's daughter patient started having cough about 2 days ago, complained of feeling tired, was lethargic yesterday, was unable to get out of bed, was given Robitussin before going to bed, this morning patient's daughter noted that she did not get up and was found to be unresponsive laying in bed, coffee ground drool noted at mouth and patient's daughter called EMS. Per EMS signoff on their arrival patient was unresponsive, febrile, patient's jaw was clenched and was saturating at 68% on room air. Stated that they started bagging the patient via BVM with improvement and then patient was placed on 15 L oxy mask was found to be saturating at 97%. Last well-known of patient was last night. Patient's daughter denies any sick contacts, but patient's daughter patient has baseline dementia, is aggressive at times, also reports of patient being incontinent and uses diapers at home, not consistent. She also reported that patient is noncompliant with medication and does not take meds daily. ED Course: ED Vitals: Presentation in ED BP 88/49, P 122, RR 13, temp 101.4, O2 sat 100 on Ambu bag with 100% FiO2 ED Labs:On admission ED labs significant for WBC 16.6, RBC 5.45, hemoglobin 17.8, hematocrit 53.5, platelet 88 PT 13.8, ABG pH 7.28, pCO2 49, sodium 160 (corrected sodium for glucose 170), potassium 5.0, chloride 116, venous bicarb 20.3, anion gap 24, BUN 74, creatinine 2.8, GFR 17, glucose 739, osmolality 374, lactate 12.5, calcium 11.3, total bilirubin 2.6, AST 41, ALT 38, alk phos 177, ammonia 111, troponin 17.116, BNP 178, albumin 3.3, globulin 3.8, beta hydroxybutyrate 0.6, Pro-Kayden 1.51. UA pH 7.5, protein 1+, glucose 4+, ketones trace, leukocyte esterase positive, RBC 5, WBC 33, Bacteria 2+ ED Imaging:Chest x-ray in ED significant for significant bilateral pneumonia, CT chest abdomen pelvis shows bilateral pneumonia, cirrhosis, prominent splenomegaly, portal hypertension, CT head negative for acute hemorrhage, mass or midline defect. 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, esophageal varices status post banding in 2019, personal history of paroxysmal atrial fibrillation PSHx: Variceal banding gallbladder surgery, section, multiple abdominal surgeries as reported by patient's daughter Allergies: Adhesive tape?, Daughter at bedside denies all allergies Social history: Patient lives at home with daughter and son-in-law -Smoking: Denies -Alcohol Use: Denies -Illicit Drug Use: Denies Family History: Positive for leukemia in mother, dementia in father CODE STATUS: Patient's primary decision-maker daughter Daphney Sandy, wants patient to be full code for now, will discuss with siblings about possibility of DNR Exam Vital Signs Temp Pulse Resp BP Pulse Ox O2 Del Method FiO2 100.1 F 91 20 109/40 L 96 Mechanical Ventilation 40 09/14/24 15:25 09/14/24 15:26 09/14/24 14:51 09/14/24 14:51 09/14/24 14:51 09/14/24 14:51 09/14/24 14:51 Narrative Exam Physical Exam General: 78-year-old female obtunded, lying in bed, unkempt hair HEENT: Normocephalic, atraumatic, mucous membranes dry. Pupils reactive bilaterally, dried blood noted in mouth. Heart: Regular rate and rhythm, no murmurs. Lungs: Clear to auscultation with no wheezing or crackles. Abdomen: Soft, nondistended, nontender, positive bowel sounds. Midline abdominal scar noted, redness noted. Neurologic: Intubated, current GCS 3T, was recently given ETO/vecuronium Extremities: No edema. Onychomycosis noted on bilateral feet Skin: No rash or ecchymoses noted, except for redness around midline abdominal scar. Results: Labs 09/14/24 16:48 09/14/24 16:48 Labs: Short CBC 09/14/24 Range/Units 11:52 WBC 16.6 H (3.6-11.0) Thou/mm3 Hgb 17.8 H (12.0-16.0) g/dL Hct 53.5 H (36.0-46.0) % Plt Count 88 L (140-440) Thou/mm3 BMP 09/14/24 09/14/24 11:52 15:29 Sodium 160 H 163 H* Potassium 5.0 Chloride 116 H Carbon Dioxide 20.3 BUN 74 H Creatinine 2.8 H Glucose 739 H* Calcium 10.7 H Cardiac Enzymes 09/14/24 Range/Units 11:52 Troponin I 17.116 H* (0.0-0.045) ng/mL Liver Function 09/14/24 Range/Units 11:52 Total Bilirubin 2.6 H (0.3-1.2) mg/dL AST 41 H (0-34) U/L ALT 38 (10-49) U/L Alkaline Phosphatase 177 H (46-116) U/L Albumin 3.3 L (3.4-4.8) gm/dL Urine 09/14/24 Range/Units 12:00 Urine Color Yellow (Lt Yel-Yel) Urine Clarity Turbid A (Clear/Hazy) Urine pH 7.5 H (5.0-7.0) Ur Specific [place] 1.029 (1.001-1.035) Urine Protein 1+ A (Neg - Trace) Urine Glucose (UA) 4+ A (Negative) ABG Interpretation ABG results: 09/14/24 13:24 ABG pH 7.28 L ABG pCO2 49 H ABG pO2 307 H ABG HCO3 23 ABG O2 Saturation 101 H ABG Base Excess -5 L Quality Measures Quality Measures sepsis Current suspected stage: severe sepsis Possible source: pulmonary Blood cultures ordered: completed in ED Antibiotic ordered: Yes Advance care planning discussed with:: patient and child Medications Home Medications and Allergies Home Medications ?Medication ?Instructions ?Recorded ?Confirmed ?Type metformin 850 mg tablet 850 mg PO QDAY 01/23/19 02/25/24 History donepezil 10 mg tablet 10 mg PO QDAY 10/20/19 02/25/24 History escitalopram oxalate 20 mg tablet 20 mg PO QDAY 10/20/19 02/25/24 History (Lexapro) spironolactone 50 mg tablet 50 mg PO QDAY 10/20/19 02/25/24 History (Aldactone) ursodiol 300 mg capsule 300 mg PO BID 10/20/19 02/25/24 History gabapentin 300 mg capsule 300 mg PO BID 01/06/21 02/25/24 History lactulose 10 gram/15 mL oral 30 ml PO BID 01/06/21 02/25/24 History solution montelukast 10 mg tablet 10 mg PO QDAY 01/06/21 02/25/24 History pantoprazole 20 mg tablet,delayed 20 mg PO DAILY 01/06/21 02/25/24 History release rifaximin 550 mg tablet (Xifaxan) 550 mg PO BID 01/06/21 02/25/24 History Allergies Allergy/AdvReac Type Severity Reaction Status Date / Time adhesive tape Allergy Verified 02/24/24 23:38 Visit Medications Aspirin (Aspirin Ec 81 Mg Tabec) 81 mg PO QDAY REBECCA Stop: 10/15/24 08:59 Clopidogrel Bisulfate (Clopidogrel Bisulfate 75 Mg Tablet) 75 mg PO QDAY REBECCA Stop: 10/14/24 15:44 Last Admin: 09/14/24 16:40 Dose: 75 mg Insulin Human Regular (Myxredlin) 100 unit in 100 mls @ 4.536 mls/hr IV .Q22H3M PRN; Protocol PRN Reason: PER PROTOCOL Stop: 10/14/24 13:03 Piperacillin/Tazobactam/Dextrose (Zosyn) 50 mls @ 12.5 mls/hr IV Q12HR REBECCA Stop: 09/21/24 20:59 Vancomycin/Sodium Chloride (Vancomycin/Ns 1 Gm Ivpb) 200 mls @ 120 mls/hr IV X1 ONE Stop: 09/14/24 17:24 Heparin Sodium/Dextrose (Heparin In D5w Ivpb) 25,000 unit in 250 mls @ 5.443 mls/hr IV .Q24H REBECCA; Protocol Stop: 09/28/24 15:44 Lactulose (Lactulose Syrup 20 Gm/30 Ml Udc) 10 gm PO TID REBECCA; Protocol Stop: 10/14/24 21:59 Pantoprazole Sodium (Pantoprazole Inj 40 Mg Vial) 40 mg IVP QDAY REBECCA Stop: 10/14/24 15:29 Last Admin: 09/14/24 16:40 Dose: 40 mg Pharmacy Consult (Vancomycin Pharmacy To Dose 1 Each Each) 1 each IV QDAY PRN PRN Reason: PROTOCOL Stop: 10/14/24 15:29 Rifaximin (Rifaximin 550 Mg Tablet) 550 mg PO BID [facility] Stop: 09/21/24 20:59 Discontinued Medications Acetaminophen (Acetaminophen Supp 650 Mg Supp) 650 mg NV X1 ONE Stop: 09/14/24 11:34 Last Admin: 09/14/24 12:14 Dose: 650 mg Aspirin (Aspirin 300 Mg Supp) 300 mg NV X1 ONE Stop: 09/14/24 16:31 Etomidate (Etomidate Inj 2 Mg/Ml Vial 10 Ml) 20 mg IVP X1 ONE Stop: 09/14/24 11:07 Last Admin: 09/14/24 11:26 Dose: 20 mg Heparin Sodium (Porcine) (Heparin Sod Inj 5000 Unit/Ml Vial) 2,700 unit 60 unit/kg (2700 unit) IV X1 ONE; Protocol Stop: 09/14/24 15:34 Sodium Chloride (Ns) 1,350 mls @ 999 mls/hr IV .Q1H22M ONE Stop: 09/14/24 12:55 Last Infusion: 09/14/24 14:13 Dose: Infused Ceftriaxone Sodium/Dextrose (Rocephin/D5w 1gm Iv Premix) 50 mls @ 100 mls/hr IV X1 ONE Stop: 09/14/24 12:04 Last Infusion: 09/14/24 12:55 Dose: Infused Lactated Ringer's (Lactated Ringers) 1,000 mls @ 999 mls/hr IV .Q1H1M ONE Stop: 09/14/24 15:15 Last Admin: 09/14/24 14:20 Dose: 999 mls/hr Piperacillin/Tazobactam/Dextrose (Zosyn) 50 mls @ 100 mls/hr IV X1 ONE Stop: 09/14/24 16:14 Last Admin: 09/14/24 16:40 Dose: 100 mls/hr Insulin Human Regular (Insulin Hum Regular 1 Unit/0.01 Ml (Per Unit)) 4.5 unit 0.1 unit/kg (4.5 unit) IV X1 ONE Stop: 09/14/24 11:40 Last Admin: 09/14/24 12:11 Dose: 4.5 unit Sodium Chloride (Sodium Chloride Rt 10% 15 Ml Nebu) 5 ml INH X1 ONE Stop: 09/14/24 11:52 Vecuronium [place] (Vecuronium Inj 10 Mg Vial) 40 mg IV X1 ONE Stop: 09/14/24 11:07 Last Admin: 09/14/24 11:26 Dose: Not Given Vecuronium [place] (Vecuronium Inj 10 Mg Vial) 20 mg IV X1 ONE Stop: 09/14/24 11:15 Last Admin: 09/14/24 11:14 Dose: 20 mg Assessment & Plan Plan Assessment and Plan: Summary: Ms. 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 Patient intubated in ED, admitted to ICU for further management of acute encephalopathy, ST elevation myocardial infarction and hypernatremia. Neurological #Acute Encephalopathy Multifactorial: Metabolic versus hepatic versus toxic Patient was given etomidate and vecuronium Plan: -Will keep patient off sedation -Will continue to monitor, neurochecks every hour -Will treat underlying causes #History of dementia, depression Patient on donepezil, escitalopram at home -Will hold medication in setting of acute encephalopathy Cardiology #ST elevation myocardial infarction #Elevated troponin Patient EKG shows marked ST elevation in leads II, III, aVF, V1-V6 Troponin 17.116, bedside echo shows decreased cardiac contractility Cardiology consulted in ED, per cardiology patient is not medically stable to go to [employer] Patient's daughter reports history of BLE, no known history of CHF Plan: -Heparin drip, ACS protocol -Aspirin loading dose given, continue aspirin 81 mg daily -Started on Plavix daily -Cardiology consulted, per water truck driver more than 12-18 hours since symptoms, patient not candidate for tPA -Ordered echocardiogram -Trend troponin every 6 hours Pulmonary # Acute hypoxic respiratory failure # Status post-intubation 09/14 # Bibasilar pneumonia # Respiratory acidosis Patient currently intubated on mechanical ventilation secondary to airway protection and acute hypoxic respiratory failure ABG postintubation shows pH 7.28, pCO2 49, consistent with respiratory acidosis Chest x-ray and CT chest show bilateral bibasilar pneumonia Plan: -Continue mechanical ventilation -Started on IV Zosyn and vancomycin (09/14- -Ordered MRSA nasal screen -Ordered sputum culture -Follow-up blood culture Gastrointestinal # Decompensated cirrhosis, MALD # Hyperbilirubinemia # Transaminitis # Thrombocytopenia # Hyperammonemia Patient has history of cirrhosis, with history of esophageal varices with GI bleeding in the past Patient has no history of alcohol use, was following with 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 Hemoglobin Stable, no active bleeding, stool card positive Plan: -Started on lactulose 10 mg 3 times daily -Started on rifaximin -Protonix IVP daily -Follow CMP in a.m. -Monitor for GI bleed Renal/Genitourinary #Acute kidney injury, prerenal On presentation BUN 74, creatinine 2.8, GFR 17 Baseline BUN 16, creatinine 0.6, GFR more than 60, per chart review Clinically patient looks dehydrated, hyperglycemia and hyponatremia noted on labs Plan: -Patient was given IV fluids in ED -Started on IV NS maintenance fluids -Monitor renal function in a.m. -Dose medications renally -Nephrotoxic agents #Hyperosmolar hyperchloremic hypernatremia On presentation patient's corrected sodium 170 Plan: -Sodium checks every 4 hours -NS maintenance fluids -Titrate NS per urine output -Goal correction 6-8 in 24hours #High Anion Gap Metabolic acidosis #Lactic Acidosis Underlying ketoacidosis and lactic acidosis Treat underlying cause monitor lactate q4H #Hypercalcemia in setting of dehydration, continue to monitor. Endocrine #Hyperglycemia #Hyperglycemic hyperosmolality syndrome #Diabetic ketoacidosis, moderate On admission Glucose 739, Beta-Hydroxybutyrate 0.6, anion gap 24 Non-compliant with medications outpatient Last A1c 8.2-03/10/24 Plan: -Lantus 15 Units -Fingerstick Q2H -Moderate Sliding Scale Insulin -IV NS maintanence fluid Hematology #Leukocytosis Underlying sepsis, follow in AM #Polycythemia Underlying dehydration, follow in AM #Thrombocytopenia #Coagulopathy Pt 60 thousand, INR 1.3 underlying liver disease Will monitor in AM Infectious Disease # Sepsis # UTI # Pneumonia Chest x-ray in ED significant for significant bilateral pneumonia. CT chest abdomen pelvis shows bilateral pneumonia, cirrhosis, prominent splenomegaly, portal hypertension. Lactate elevated UA pH 7.5, protein 1+, glucose 4+, ketones trace, leukocyte esterase positive, RBC 5, WBC 33, Bacteria 2+ Plan: -Started on IV Zosyn and vancomycin (09/14- -Ordered MRSA nasal screen -Ordered sputum culture -Follow-up blood culture Integumentary # Redness around abdominal scar Will continue to monitor DVT prophylaxis: Heparin GI prophylaxis: Protonix IV Diet: NPO Lines: Peripheral IV Code status: DNR/DNI (Per patient's primary decision-maker Daphney Shepard, daughter she has discussed CODE STATUS with all siblings and has decided to proceed to change patient's CODE STATUS to DNR/DNI. RN Padmini neal) Case discussed with Attending Dr. Malone and Dr. Lubin PGY3. Atlon Brian PGY1 Disclaimer: This note was dictated by speech recognition. Minor errors in telephonic nurse may be present due to voice recognition software.
[2024-09-14 16:57] LABS: Base Excess -3 (-3-3); HCO3 22 mEq/L (20-26); Inspired Oxygen, FIO2 40 %; O2 Saturation 97 % (91-98); PCO2 35 mmHg (32.0-48.0); PO2 85 mmHg (83-108)
[2024-09-14] MEDS: ASPIRIN 300 MG SUPP PR (16:58)
[2024-09-14 17:01] LABS: Basophils % (Auto) 0 % (0-2.5); Eosinophils # (Auto) 0.1 Thou/mm3 (0.0-0.5); Eosinophils % (Auto) 0 % (0-10); Hematocrit 48.5 % (36.0-46.0); Immature Granulocytes % (Auto) 1 % (0-0); Immature Granulocytes Auto 0.07 Thou/mm3 (0.00-0.00); Lymphocytes # (Auto) 0.7 Thou/mm3 (1.0-4.8); Lymphocytes % (Auto) 6 % (10-50); Mean Corpuscular Hemoglobin 32.7 pg (25.0-35.0); Mean Corpuscular Volume 99 fL (80-100); Monocytes # (Auto) 0.3 Thou/mm3 (0.0-0.8); Monocytes % (Auto) 3 % (0-12); Neutrophils # (Auto) 10.9 Thou/mm3 (1.8-7.7); Neutrophils % (Auto) 91 % (37-80); Nucleated Red Blood Cell % 0 /100 WBC (0); RDW Standard Deviation 51.1 fL (36.4-46.3); White Blood Count 12.1 Thou/mm3 (3.6-11.0)
[2024-09-14 17:03] LABS: Beta Hydroxybutyrate 0.6 mmol/L (<0.6)
[2024-09-14 17:04] LABS: Allen Test Performed/OK; Puncture Site Right Brachial
[2024-09-14 17:07] LABS: Platelet Count 60 Thou/mm3 (140-440)
[2024-09-14] MEDS: VANCOMYCIN/NS 1 GM IVPB 200 ML IV (17:11)
[2024-09-14 17:16] LABS: INR 1.4 (0.9-1.3); Partial Thromboplastin Time 28.2 Seconds (22.0-36.0); Prothrombin Time 14.6 Seconds (9.0-12.2)
[2024-09-14 17:17] LABS: Ammonia 80 uMol/L (11-32)
[2024-09-14 17:29] LABS: Alanine Aminotransferase 62 U/L (10-49); Albumin, Serum 2.8 gm/dL (3.4-4.8); Albumin/Globulin Ratio 0.8 (1.2-2.2); Alkaline Phosphatase 141 U/L (46-116); Anion Gap 18 (7-16); Aspartate Amino Transferase 130 U/L (0-34); BUN/Creatinine Ratio 23 Ratio (12-20); Bilirubin,Total 2.5 mg/dL (0.3-1.2); Blood Urea Nitrogen 64 mg/dL (9-23); Calcium 9.8 mg/dL (8.3-10.6); Calcium (Corrected) 10.8 mg/dL (8.5-10.1); Carbon Dioxide 23.6 mMol/L (20.0-31.0); Chloride 119 mMol/L (98-107); Creatinine (Component) 2.8 mg/dL (0.6-1.3); Estimated Creatinine Clearance 11.7 mL/min (>60); Globulin 3.5 gm/dL (2.3-3.5); Osmolality,Calculated 367 (275-295); Potassium 4.4 mMol/L (3.4-5.1); Total Protein 6.3 gm/dL (5.7-8.2); eGFR 17 See Note
[2024-09-14 17:30] LABS: Slide Review Platelets confirmed
[2024-09-14 17:32] LABS: Glucose 657 mg/dL (74-106); Sodium 161 mMol/L (136-145); Troponin I 15.755 ng/mL (0.0-0.045)
[2024-09-14] MEDS: INSULIN GLARGINE (Lantus) 5 UNIT/0.05 ML (PER 5 UNITS) 15 UNIT SC (18:08)
[2024-09-14] MEDS: INSULIN LISPRO (AdmeLOG) 1 UNIT/0.01 ML UNIT SC ×3 (18:08→22:16)
[2024-09-14] MEDS: SODIUM CHLORIDE 0.9% 1000 ML 1,000 ML 50 ML IV (18:16)
--- NOTE | 2024-09-14 19:00 | EVENTNT_ITS ---
Documentation for date of: 09/14/24 Event Note Event Note: Discussion held later this evening with patient's primary decision-maker Daphney Shepard, daughter regarding patient's condition and prognosis. Patient's daughter was updated on the management plan, all questions were answered. Per patient's daughter she has discussed CODE STATUS with all siblings and has decided to proceed to change patient's CODE STATUS to DNR/DNI. SYDNIE [place] present during discussion. We will continue medical management and update patient's daughter in AM about prognosis. We will respect the decision to change code status to DNR/DNI Case discussed with Attending Dr. Malone and Dr. Lubin PGY3. Alton Brian PGY1 Disclaimer: This note was dictated by speech recognition. Minor errors in human resources manager manufacturing may be present due to voice recognition software.
[2024-09-14] MEDS: SODIUM CHLORIDE 0.9% 250 ML 250 ML 999 ML IV (20:18)
[2024-09-14] MEDS: Norepinephrine/D5W 8mg/250ml 8 MG/250 ML BAG 4.453 MG IV (20:18)
[2024-09-14 20:49] LABS: Lactate (Lactic Acid) 9.7 mMol/L (0.4-2.0)
[2024-09-14] MEDS: rifaximin 550 MG TABLET PO (20:49)
[2024-09-14] MEDS: LACTULOSE SYRUP 20 GM/30 ML UDC 10 GM PO (21:00)
[2024-09-14 21:13] LABS: Sodium 164 mMol/L (136-145)
[2024-09-14] MEDS: SODIUM CHLORIDE 0.9% 1000 ML 1,000 ML 125 ML IV (22:20)
[2024-09-14] MEDS: DEXMEDETOMIDINE 200 MCG IVPB 200 MCG/50 ML BOTTLE IV (23:30)
[2024-09-14 23:42] LABS: Reflex Lactate? Y
[2024-09-14 23:43] LABS: Partial Thromboplastin Time 78.1 Seconds (22.0-36.0)
[2024-09-15] VITALS (72 sets, daily range): BP systolic 50–164; BP diastolic 34–138; PULSE 84–160; RESP 11–36; TEMP 37.6; O2SAT 80–98
[2024-09-15 00:28] LABS: Sodium 163 mMol/L (136-145)
[2024-09-15 00:30] LABS: Troponin I 24.485 ng/mL (0.0-0.045)
[2024-09-15] MEDS: INSULIN LISPRO (AdmeLOG) 1 UNIT/0.01 ML UNIT SC ×2 (00:32→02:55)
[2024-09-15] MEDS: LORazepam 2 MG/ML VIAL IVP ×2 (01:38→05:10)
[2024-09-15] MEDS: VASOPRESSIN IN NS IVPB 20 UNIT/100 ML BAG 9 UNIT IV (01:55)
--- NOTE | 2024-09-15 02:09 | XR_ITS ---
Examination: AP chest single view Technique: AP portable supine chest single view Exam date and time: July 16, [address] chest September 14, 2024, chest x-ray September 14, 2024 Indications: Post central line placement Findings: Interval right internal jugular central line tip right atrium satisfactory position, no pneumothorax Normal heart size Extensive bilateral pneumonia again noted Endotracheal tube tip 5.4 cm above jhonny Orogastric tube tip distal stomach versus duodenal bulb Prominent osteopenia Impression: Interval right internal jugular central line, tip in satisfactory position, no pneumothorax Again noted significant bilateral pneumonia
[2024-09-15] MEDS: AMIODARONE IV (02:30)
[2024-09-15] MEDS: DOBUTamine/D5w 500 MG IVPB 500 MG/250 ML BAG IV (02:30)
[2024-09-15] MEDS: DEXTROSE 5% IV (02:30)
[2024-09-15] MEDS: WATER IV (02:30)
--- NOTE | 2024-09-15 02:35 | EKG_ITS ---
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 : 1945 Requested By: Jsoe Allen Order Number: [id number] Reading MD: Jose Allen Measurements Intervals [place] Rate: 92 P: 68 NH: 158 QRS: -34 QRSD: 85 T: 0 QT: 413 QTc: 513 Interpretive Statements SINUS RHYTHM MARKED LEFT AXIS DEVIATION LOW QRS VOLTAGE ANTERIOR MYOCARDIAL INFARCTION , POSSIBLY ACUTE MARKED ST ELEVATION, CONSIDER LATERAL INJURY MARKED ST ELEVATION, CONSIDER INFERIOR INJURY ACUTE [place] Compared to ECG 09/14/2024 11:52:50 Left-axis deviation now present Sinus tachycardia no longer present Myocardial infarct finding still present ST (T wave) deviation still present /store/S0/[id number].pdf
[2024-09-15] MEDS: Norepinephrine/NS 16mg/250ml 16 MG/250 ML BAG 2.227 MG IV (02:41)
[2024-09-15 02:57] LABS: Reflex Lactate? Y
--- NOTE | 2024-09-15 02:58 | ESOP_ITS ---
Procedures Procedure Date / Time 09/15/24 0258 Procedure Narrative Procedure Narrative: Central Line Procedure Note Indication: Hypotension/Need for Pressors Central Line Location: Right Internal Jugular Vein Procedure Chief Airport Guide: Jaron Vallejo MD Attending Physician: Gilbert Cardenas MD Present During Procedure?: Yes Consent: FRANCIA CARDENAS (Daughter) Consent was obtained from daughter prior to the procedure. Indications, risks and benefits were discussed prior to the procedure. PROCEDURE SUMMARY: My hands were washed immediately prior to the procedure. I wore a surgical cap, mask, full gown and sterile gloves throughout the procedure. The patient was placed in Trendelenburg position. The Right neck was prepped using chlorhexidine scrub and draped in sterile fashion using a three quarter sheet drape. Skin preparation was allowed to dry prior to skin puncture. Anatomic landmarks were identified. Anesthesia was achieved over the vein using 1% lidocaine. Using real-time ultrasound, with sterile probe cover and sterile gel, the introducer needle was inserted into the vein under direct ultrasound visualization. Venous blood was withdrawn. The syringe was removed and a guidewire was advanced into the introducer needle. The guidewire was visualized in the appropriate vein by ultrasound. A small incision was made at the skin surface with a scalpel and the introducer needle was exchanged for a dilator over the guidewire. After appropriate dilation was obtained, the dilator was exchanged over the wire for an central venous catheter. The wire was removed and the catheter was sutured in place. A biopatch was placed at the insertion site. A sterile op-site was placed over the catheter and biopatch. The patient tolerated the procedure without any hemodynamic compromise. At time of procedure completion, all ports aspirated and flushed properly. Post-procedure chest x-ray showed adequate positioning of the catheter for use. Procedure was done under the supervisopn and guidance of attending physician Dr. Theresa Vallejo M.D. Internal Medicine PGY-3 Central Line Placement Right IJ: Indication(s): shock Informed consent obtained: obtained from surrogate decision maker Patient placed on monitor/pulse ox: Yes Hand Hygiene: soap & water and alcohol-based hand rub Max Sterile Barrier Techniques used: cap, mask, sterile gown, sterile gloves and sterile full body drape Central line prep: Chlorhexidine scrub Local anesthesia used: lidocaine 1% Amount of anesthesia used (mL): 10 Ultrasound used for placement: Yes Sterile Technique if Ultrasound used, including sterile gel: yes Central line lumen inserted: triple Post procedure: sutured in place, good blood return, all ports aspirated, flushed, capped and sterile dressing applied Post procedure x-ray: tip of catheter in good position and no pneumothorax seen Patient tolerated procedure: well EBL(ml): 100 Complications: none
[2024-09-15 03:44] LABS: Basophils % (Auto) 0 % (0-2.5); Eosinophils % (Auto) 0 % (0-10); Hematocrit 47.7 % (36.0-46.0); Hemoglobin 16.2 g/dL (12.0-16.0); Immature Granulocytes % (Auto) 1 % (0-0); Immature Granulocytes Auto 0.13 Thou/mm3 (0.00-0.00); Lactate (Lactic Acid) 6.7 mMol/L (0.4-2.0); Lymphocytes # (Auto) 1.8 Thou/mm3 (1.0-4.8); Lymphocytes % (Auto) 7 % (10-50); Mean Corpuscular Hemoglobin 32.7 pg (25.0-35.0); Mean Corpuscular Volume 96 fL (80-100); Monocytes # (Auto) 0.6 Thou/mm3 (0.0-0.8); Monocytes % (Auto) 2 % (0-12); Neutrophils # (Auto) 22.8 Thou/mm3 (1.8-7.7); Neutrophils % (Auto) 90 % (37-80); Nucleated Red Blood Cell # 0.02 Thou/mm3 (0.00-0.00); Nucleated Red Blood Cell % 0 /100 WBC (0); Platelet Count 89 Thou/mm3 (140-440); RDW Standard Deviation 49.2 fL (36.4-46.3); Red Blood Count 4.95 Miln/mm3 (4.00-5.20); White Blood Count 25.4 Thou/mm3 (3.6-11.0)
[2024-09-15 04:14] LABS: Alanine Aminotransferase 96 U/L (10-49); Albumin, Serum 2.9 gm/dL (3.4-4.8); Albumin/Globulin Ratio 0.9 (1.2-2.2); Alkaline Phosphatase 145 U/L (46-116); Anion Gap 17 (7-16); Aspartate Amino Transferase 193 U/L (0-34); BUN/Creatinine Ratio 28 Ratio (12-20); Bilirubin,Total 3.2 mg/dL (0.3-1.2); Blood Urea Nitrogen 76 mg/dL (9-23); Calcium 9.4 mg/dL (8.3-10.6); Calcium (Corrected) 10.3 mg/dL (8.5-10.1); Carbon Dioxide 20.8 mMol/L (20.0-31.0); Chloride 125 mMol/L (98-107); Creatinine (Component) 2.7 mg/dL (0.6-1.3); Estimated Creatinine Clearance 12.1 mL/min (>60); Globulin 3.4 gm/dL (2.3-3.5); Glucose 369 mg/dL (74-106); Magnesium 2.1 mg/dL (1.6-2.6); Osmolality,Calculated 359 (275-295); Phosphorous 1.3 mg/dL (2.4-5.1); Potassium 3.4 mMol/L (3.4-5.1); Total Protein 6.3 gm/dL (5.7-8.2); eGFR 18 See Note
[2024-09-15 04:19] LABS: Sodium 163 mMol/L (136-145)
[2024-09-15] MEDS: SCOPOLAMINE 1 MG TDSY TOP (05:08)
[2024-09-15] MEDS: MORPHINE SULF INJ 10 MG/ML VIAL 3 MG IVP ×6 (05:09→17:13)
--- NOTE | 2024-09-15 05:44 | PD.RESEVENT ---
Documentation for date of: 09/15/24 Event Note Event Note: Patient's troponin trended markedly upwards to 25. Patient became hypotensive requiring levophed. Despite escalating doses of levophed MAP continued to decrease to low 50s/40s. Central line was placed and additional pressors were started. Patient also began to experience sustained ventricular tachycardia at which point, I spoke with Daughter María and conveyed patient's poor prognosis and continued decline. All treatment options were discussed including transitioning to comfort care vs full treatment. Patient's family came to patient's bedside and came to a general consensus to transition the patient to COMFORT CARE MEASURES ONLY. Patient was transitioned to comfort care measures and was terminally extubated. Patient's case was discussed with supervising attending physician Dr. Theresa Vallejo M.D. Internal Medicine PGY-3
[2024-09-15] MEDS: Morphine IV Drip 100mg/100ml 100 ML IV (06:03)
[2024-09-15 06:40] LABS: Reflex Lactate? Y
--- NOTE | 2024-09-15 10:24 | ESPR_ITS ---
<Statement entered by Parth Lubin DO - 09/15/24 14:54> Senior attestation: Patient was examined and case was reviewed with team including attending physician. Note reviewed, I agree with most of its contents and agree with the patient's care. Overnight patient's troponin was noted to increase to 24, pressor requirement also increased to levophed, vasopressin, and dobutamine. Central line was placed, patient was noted to be in ventricular tachycardia. Night ICU resident spoke with patient's decision-maker and family, decision was made to transition to comfort care measures this morning, patient was subsequently extubated. Morphine drip was started, patient will be down-graded to medical floors for further comfort care measures. Parth Lubin DO PGY-3 Documentation for date of: 09/15/24 Subjective Subjective Interval history: Ms. 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 Most of patient's history is obtained from patient's daughter Daphney at bedside, per patient's daughter patient started having cough about 2 days ago, complained of feeling tired, was lethargic yesterday, was unable to get out of bed, was given Robitussin before going to bed, this morning patient's daughter noted that she did not get up and was found to be unresponsive laying in bed, coffee ground drool noted at mouth and patient's daughter called EMS. Per EMS signoff on their arrival patient was unresponsive, febrile, patient's jaw was clenched and was saturating at 68% on room air. Stated that they started bagging the patient via BVM with improvement and then patient was placed on 15 L oxy mask was found to be saturating at 97%. Last well-known of patient was last night. Patient's daughter denies any sick contacts, but patient's daughter patient has baseline dementia, is aggressive at times, also reports of patient being incontinent and uses diapers at home, not consistent. She also reported that patient is noncompliant with medication and does not take meds daily. 09/15/24: Patient seen at bedside, overnight patient had elevated troponin of 24.485, was started on pressors Levophed, vasopressin and dobutamine. Patient had a central line placed, on telemetry patient was noted to be in V. tach, patient's primary decision-maker was informed patient's family at bedside early this morning requested to transition patient to comfort measures. Family's decision was respected and earlier today patient was transition to comfort care, all treatment was discontinued and patient was extubated. Patient currently on morphine drip, will continue with comfort measures, patient [facility], hospitalist team will resume care of patient in a.m. Exam Vital Signs Temp Pulse Resp BP Pulse Ox O2 Del Method O2 Flow Rate 99.7 F 84 22 H 130/88 H 80 L Mechanical Ventilation 2 09/15/24 00:00 09/15/24 08:00 09/15/24 06:02 09/15/24 05:25 09/15/24 06:02 09/14/24 18:00 09/15/24 06:02 FiO2 40 09/15/24 05:30 Narrative Exam Physical Exam General: 78-year-old female obtunded, lying in bed, unkempt hair HEENT: Normocephalic, atraumatic Respiratory: Agonal breaths noted Neurologic: Extubated, nonresponsive, currently on comfort measures Objective Labs 09/15/24 03:32 09/15/24 03:32 Labs: Laboratory Results - last 24 hr 09/14/24 09/14/24 09/14/24 11:00 11:52 12:00 WBC 16.6 H RBC 5.45 H Hgb 17.8 H Hct 53.5 H MCV 98 MCH 32.7 MCHC 33.3 RDW Std Deviation 50.5 H Plt Count 88 L Neut % (Auto) 92 H Lymph % (Auto) 3 L Armstrong % (Auto) 3 Eos % (Auto) 1 Baso % (Auto) 1 Neut # (Auto) 15.3 H Lymph # (Auto) 0.4 L Armstrong # (Auto) 0.5 Eos # (Auto) 0.1 Baso # (Auto) 0.1 Immature Gran # (Auto) 0.11 H Absolute Nucleated RBC 0.00 Immature Gran % 1 H Nucleated RBC % 0 PT 13.8 H INR 1.3 APTT 26.5 Puncture Site ABG pH ABG pCO2 ABG pO2 ABG HCO3 ABG O2 Saturation ABG Base Excess FiO2 Sodium 160 H Potassium 5.0 Chloride 116 H Carbon Dioxide 20.3 Anion Gap 24 H BUN 74 H Creatinine 2.8 H Estim Creat Clear Calc 11.7 L eGFR 17 L BUN/Creatinine Ratio 26 H Glucose 739 H* Calculated Osmolality 374 H Lactic Acid 12.5 H* Calcium 10.7 H Corrected Calcium 11.3 H Phosphorus Magnesium Total Bilirubin 2.6 H AST 41 H ALT 38 Alkaline Phosphatase 177 H Ammonia 111 H* Troponin I 17.116 H* B-Natriuretic Peptide 178 H Total Protein 7.1 Albumin 3.3 L Globulin 3.8 H Albumin/Globulin Ratio 0.9 L Beta-Hydroxybutyrate/Acetoacetate 0.6 H Procalcitonin 1.51 H Ur Collection Type Catheter Urine Color Yellow Urine Clarity Turbid A Urine pH 7.5 H Ur Specific Holstein 1.029 Urine Protein 1+ A Urine Glucose (UA) 4+ A Urine Ketones Trace Urine Blood Negative Urine Nitrite Negative Urine Bilirubin Negative Urine Urobilinogen (Auto) Negative Ur Leukocyte Esterase Positive Urine RBC 5 H Urine WBC 33 H Ur Squamous Epith Cells 6 H Urine Bacteria 2+ A Ur Culture Indicated? Yes Stool Occult Blood Positive A Urine Opiates Screen Negative Urine Fentanyl Screen Negative Ur Barbiturates Screen Negative U Amphetamin/Meth Scrn Negative U Benzodiazepines Scrn Negative U Cocaine Metab Screen Negative U Marijuana (THC) Screen Negative Ethyl Alcohol < 3.0 Misc Test Result Blood Type O Positive Blood Bank Wristband ID Yes 09/14/24 09/14/24 09/14/24 13:24 15:29 16:48 WBC 12.1 H RBC 4.90 Hgb 16.0 Hct 48.5 H MCV 99 MCH 32.7 MCHC 33.0 RDW Std Deviation 51.1 H Plt Count 60 L D Neut % (Auto) 91 H Lymph % (Auto) 6 L Armstrong % (Auto) 3 Eos % (Auto) 0 Baso % (Auto) 0 Neut # (Auto) 10.9 H Lymph # (Auto) 0.7 L Armstrong # (Auto) 0.3 Eos # (Auto) 0.1 Baso # (Auto) 0.0 Immature Gran # (Auto) 0.07 H Absolute Nucleated RBC 0.00 Immature Gran % 1 H Nucleated RBC % 0 PT 14.6 H INR 1.4 H APTT 28.2 Puncture Site Left Radial ABG pH 7.28 L ABG pCO2 49 H ABG pO2 307 H ABG HCO3 23 ABG O2 Saturation 101 H ABG Base Excess -5 L FiO2 100 Sodium 163 H* 161 H* Potassium 4.4 D Chloride 119 H Carbon Dioxide 23.6 Anion Gap 18 H BUN 64 H Creatinine 2.8 H Estim Creat Clear Calc 11.7 L eGFR 17 L BUN/Creatinine Ratio 23 H Glucose 657 H* D Calculated Osmolality 367 H Lactic Acid 8.5 H* Calcium 9.8 Corrected Calcium 10.8 H Phosphorus Magnesium Total Bilirubin 2.5 H AST 130 H ALT 62 H Alkaline Phosphatase 141 H D Ammonia 80 H Troponin I 15.755 H* D B-Natriuretic Peptide Total Protein 6.3 Albumin 2.8 L D Globulin 3.5 Albumin/Globulin Ratio 0.8 L Beta-Hydroxybutyrate/Acetoacetate 0.6 H Procalcitonin Ur Collection Type Urine Color Urine Clarity Urine pH Ur Specific Holstein Urine Protein Urine Glucose (UA) Urine Ketones Urine Blood Urine Nitrite Urine Bilirubin Urine Urobilinogen (Auto) Ur Leukocyte Esterase Urine RBC Urine WBC Ur Squamous Epith Cells Urine Bacteria Ur Culture Indicated? Stool Occult Blood Urine Opiates Screen Urine Fentanyl Screen Ur Barbiturates Screen U Amphetamin/Meth Scrn U Benzodiazepines Scrn U Cocaine Metab Screen U Marijuana (THC) Screen Ethyl Alcohol Misc Test Result Platelets confirmed Blood Type Blood Bank Wristband ID 09/14/24 09/14/24 09/14/24 16:50 20:14 22:38 WBC RBC Hgb Hct MCV MCH MCHC RDW Std Deviation Plt Count Neut % (Auto) Lymph % (Auto) Armstrong % (Auto) Eos % (Auto) Baso % (Auto) Neut # (Auto) Lymph # (Auto) Armstrong # (Auto) Eos # (Auto) Baso # (Auto) Immature Gran # (Auto) Absolute Nucleated RBC Immature Gran % Nucleated RBC % PT INR APTT 78.1 H D Puncture Site Right Brachial ABG pH 7.40 D ABG pCO2 35 D ABG pO2 85 D ABG HCO3 22 ABG O2 Saturation 97 ABG Base Excess -3 FiO2 40 Sodium 164 H* Potassium Chloride Carbon Dioxide Anion Gap BUN Creatinine Estim Creat Clear Calc eGFR BUN/Creatinine Ratio Glucose Calculated Osmolality Lactic Acid 9.7 H* Calcium Corrected Calcium Phosphorus Magnesium Total Bilirubin AST ALT Alkaline Phosphatase Ammonia Troponin I B-Natriuretic Peptide Total Protein Albumin Globulin Albumin/Globulin Ratio Beta-Hydroxybutyrate/Acetoacetate Procalcitonin Ur Collection Type Urine Color Urine Clarity Urine pH Ur Specific Holstein Urine Protein Urine Glucose (UA) Urine Ketones Urine Blood Urine Nitrite Urine Bilirubin Urine Urobilinogen (Auto) Ur Leukocyte Esterase Urine RBC Urine WBC Ur Squamous Epith Cells Urine Bacteria Ur Culture Indicated? Stool Occult Blood Urine Opiates Screen Urine Fentanyl Screen Ur Barbiturates Screen U Amphetamin/Meth Scrn U Benzodiazepines Scrn U Cocaine Metab Screen U Marijuana (THC) Screen Ethyl Alcohol Misc Test Result Blood Type Blood Bank Wristband ID 09/14/24 09/15/24 23:46 03:32 WBC 25.4 H D RBC 4.95 Hgb 16.2 H Hct 47.7 H MCV 96 MCH 32.7 MCHC 34.0 RDW Std Deviation 49.2 H Plt Count 89 L D Neut % (Auto) 90 H Lymph % (Auto) 7 L Armstrong % (Auto) 2 Eos % (Auto) 0 Baso % (Auto) 0 Neut # (Auto) 22.8 H Lymph # (Auto) 1.8 Armstrong # (Auto) 0.6 Eos # (Auto) 0.0 Baso # (Auto) 0.0 Immature Gran # (Auto) 0.13 H Absolute Nucleated RBC 0.02 H Immature Gran % 1 H Nucleated RBC % 0 PT INR APTT Puncture Site ABG pH ABG pCO2 ABG pO2 ABG HCO3 ABG O2 Saturation ABG Base Excess FiO2 Sodium 163 H* 163 H* Potassium 3.4 D Chloride 125 H* Carbon Dioxide 20.8 Anion Gap 17 H BUN 76 H Creatinine 2.7 H Estim Creat Clear Calc 12.1 L eGFR 18 L BUN/Creatinine Ratio 28 H Glucose 369 H D Calculated Osmolality 359 H Lactic Acid 8.0 H* 6.7 H* Calcium 9.4 Corrected Calcium 10.3 H Phosphorus 1.3 L Magnesium 2.1 Total Bilirubin 3.2 H D AST 193 H ALT 96 H Alkaline Phosphatase 145 H Ammonia Troponin I 24.485 H* D B-Natriuretic Peptide Total Protein 6.3 Albumin 2.9 L Globulin 3.4 Albumin/Globulin Ratio 0.9 L Beta-Hydroxybutyrate/Acetoacetate Procalcitonin Ur Collection Type Urine Color Urine Clarity Urine pH Ur Specific Holstein Urine Protein Urine Glucose (UA) Urine Ketones Urine Blood Urine Nitrite Urine Bilirubin Urine Urobilinogen (Auto) Ur Leukocyte Esterase Urine RBC Urine WBC Ur Squamous Epith Cells Urine Bacteria Ur Culture Indicated? Stool Occult Blood Urine Opiates Screen Urine Fentanyl Screen Ur Barbiturates Screen U Amphetamin/Meth Scrn U Benzodiazepines Scrn U Cocaine Metab Screen U Marijuana (THC) Screen Ethyl Alcohol Misc Test Result Blood Type Blood Bank Wristband ID ABG Interpretation ABG results: 09/14/24 09/14/24 13:24 16:50 ABG pH 7.28 L 7.40 D ABG pCO2 49 H 35 D ABG pO2 307 H 85 D ABG HCO3 23 22 ABG O2 Saturation 101 H 97 ABG Base Excess -5 L -3 Quality Measures Quality Measures sepsis Current suspected stage: ruled out Possible source: pulmonary Blood cultures ordered: completed in ED Antibiotic ordered: No Advance care planning discussed with:: child and legal surragate Assessment & Plan Assessment Current Active Medications: Generic Name Dose Route Start Last Admin Trade Name Freq PRN Reason Stop Dose Admin Acetaminophen 650 mg 09/15/24 04:36 Acetaminophen 325 Mg Tablet PO 10/15/24 04:35 Q6H PRN PAIN SCALE 1-3 (mild Acetaminophen 650 mg 09/15/24 04:36 Acetaminophen 325 Mg Tablet PO 10/15/24 04:35 Q6H PRN Fever >100.4 Morphine Sulfate 100 mls @ 1 mls/hr 09/15/24 05:52 09/15/24 09:00 Morphine Sulfate Iv Drip 100mg/100ml IV 09/20/24 05:51 2 mg/hr .Q24H PRN 2 mls/hr PAIN (COMFORT CARE) Titration Protocol 1 MG/HR Lorazepam 2 mg 09/15/24 04:36 09/15/24 05:10 Lorazepam 2 Mg/Ml Vial IVP 09/20/24 04:35 2 mg X1 PRN Administration ANXIETY Morphine Sulfate 3 mg 09/15/24 04:36 09/15/24 07:48 Morphine Sulf Inj 10 Mg/Ml Vial IVP 09/20/24 04:35 3 mg Q30M PRN Administration Pain or air hunger Ondansetron HCl 4 mg 09/15/24 04:36 Ondansetron Inj 2 Mg/Ml Inj 2 Ml IV 10/15/24 04:35 Q6H PRN NAUSEA OR VOMITING Scopolamine 1 mg 09/15/24 04:45 09/15/24 05:08 Scopolamine 1 Mg Tdsy TOP 10/15/24 04:44 1 mg Q3D REBECCA Administration Plan Assessment and Plan: Summary: Ms. 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 Patient intubated in ED, admitted to ICU for further management of acute encephalopathy, ST elevation myocardial infarction and hypernatremia. Neurological #Acute Encephalopathy Multifactorial: Metabolic versus hepatic versus toxic Patient was given etomidate and vecuronium Plan: Started on comfort measures this morning Tylenol as needed for fever, Ativan as needed, morphine drip, morphine as needed, Zofran as needed, Ativan as needed, scopolamine patch every 72 hours #History of dementia, depression Patient on donepezil, escitalopram at home Cardiology #ST elevation myocardial infarction #Elevated troponin Patient EKG shows marked ST elevation in leads II, III, aVF, V1-V6 Troponin 17.116, bedside echo shows decreased cardiac contractility Cardiology consulted in ED, per cardiology patient is not medically stable to go to [facility] Patient's daughter reports history of BLE, no known history of CHF Plan: Comfort care measures # Shock, cardiogenic versus septic. Comfort care measures Pulmonary # Acute hypoxic respiratory failure # Status post-intubation 09/14 # Bibasilar pneumonia # Respiratory acidosis Patient currently intubated on mechanical ventilation secondary to airway protection and acute hypoxic respiratory failure ABG postintubation shows pH 7.28, pCO2 49, consistent with respiratory acidosis Chest x-ray and CT chest show bilateral bibasilar pneumonia Plan: Comfort care measures Gastrointestinal # Decompensated cirrhosis, MALD # Hyperbilirubinemia # Transaminitis # Thrombocytopenia # Hyperammonemia Patient has history of cirrhosis, with history of esophageal varices with GI bleeding in the past Patient has no history of alcohol use, was following with 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 Hemoglobin Stable, no active bleeding, stool card positive Plan: Comfort care measures Renal/Genitourinary #Acute kidney injury, prerenal On presentation BUN 74, creatinine 2.8, GFR 17 Baseline BUN 16, creatinine 0.6, GFR more than 60, per chart review Clinically patient looks dehydrated, hyperglycemia and hyponatremia noted on labs Plan: Comfort care measures #Hyperosmolar hyperchloremic hypernatremia On presentation patient's corrected sodium 170 Plan: Comfort care measures #High Anion Gap Metabolic acidosis #Lactic Acidosis Underlying ketoacidosis and lactic acidosis Comfort care measures #Hypercalcemia in setting of dehydration Endocrine #Hyperglycemia #Hyperglycemic hyperosmolality syndrome #Diabetic ketoacidosis, moderate On admission Glucose 739, Beta-Hydroxybutyrate 0.6, anion gap 24 Non-compliant with medications outpatient Last A1c 8.2-03/10/24 Plan: Comfort care measures Hematology #Leukocytosis Underlying sepsis #Polycythemia Underlying dehydration #Thrombocytopenia #Coagulopathy Pt 60 thousand, INR 1.3 underlying liver disease Comfort care measures Infectious Disease # Sepsis # UTI # Pneumonia Chest x-ray in ED significant for significant bilateral pneumonia. CT chest abdomen pelvis shows bilateral pneumonia, cirrhosis, prominent splenomegaly, portal hypertension. Lactate elevated UA pH 7.5, protein 1+, glucose 4+, ketones trace, leukocyte esterase positive, RBC 5, WBC 33, Bacteria 2+ Plan: Comfort care measures Integumentary # Redness around abdominal scar Comfort care measures DVT prophylaxis: Heparin GI prophylaxis: Protonix IV Diet: NPO Lines: Peripheral IV Code status: DNR/DNI (Per patient's primary decision-maker Daphney Shepard, daughter she has discussed CODE STATUS with all siblings and has decided to proceed to change patient's CODE STATUS to DNR/DNI. RN Padmini neal) Case discussed with Attending Dr. Malone and Dr. Lubin PGY3. Alton Brian PGY1 Disclaimer: This note was dictated by speech recognition. Minor errors in electric sign wirer may be present due to voice recognition software. Attending Provider Attestation/Addendum pt seen and agree with above. in brief pts overall condition continued to decline overnight. She developed profound shock with worsening overall labs and parameters. family was updated and they decided to proceed with comfort care. pt was extubated overnight and placed on a morphine gtt. She will be downgraded to [facility] on comfort care. case d/w ICU labs, imaging, records and overnight events reviewed
--- NOTE | 2024-09-15 16:56 | PD.RESEVENT ---
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 Patient had severe acute hypoxic respiratory failure, was intubated and brought to ICU. Patient found to be severely hyponatremic, acute metabolic encephalopathy. Patient found to have NSTEMI, cardiology was consulted and recommended patient was unable to receive catheter due to severe hypernatremia. Extensive conversation held with family regarding goals of care. Decision was made to have patient placed on comfort care. Patient extubated, downgraded to floors for further comfort care measures. Moy Lozano MD PGY-1
--- NOTE | 2024-09-15 19:00 | PC.NURSE ---
Received patient on agonal breathing, on comfort care, morphine drip at 3mg/hour infusing. Families at bedside. Supportive care provided.
--- NOTE | 2024-09-15 21:20 | PC.NURSE ---
Called by families at bedside, patient has no signs of life. Will notify MD.
--- NOTE | 2024-09-15 21:25 | PC.NURSE ---
MD's at bedside, pronouncing patient expiration. Families at bedside.
--- NOTE | 2024-09-15 21:43 | DES_ITS ---
Documentation for date of: 09/15/24 Pronouncement Note Date and Time of Date of : 09/15/24 Time of : 21:24 PCOD Preliminary cause of : Cardiac arrest Contributing Factors (1) ST elevation [place] (STEMI): (2) AMS (altered mental status): (3) Sepsis: (4) Diabetes 1.5, managed as type 2: (5) Cirrhosis of liver: (6) Lactic acid acidosis: (7) Hypernatremia: (8) Acute renal failure: Summary Additional details: PRONOUNCEMENT NOTE Called to see patient Nehal Wells . Patient was downgraded from ICU on 09/15/2024, and switched to comfort care as per family's wishes. At 8:40 PM: Patient became unresponsive, however family only informed the nursing staff and doctors at 9:15 PM. On exam she did not respond to verbal or physical stimuli. Absent heart sounds. Absent peripheral pulses. Pupils fixed and dilated. Patient pronounced at 21:24 PM. Next of kin/family notified and counselled, and were present at bedside. Supervising : Dr. Ismael Carter PGY1 Additional Data Confirmation of : no pulse, no respirations, no heart sounds and pupils fixed and dilated Family: at bedside Attending/PCP notified?: Yes (Dr. Guevara) Attending physician: Ye Guevara, DO Was code activated?: No Autopsy requested?: No can line examiner notified?: No Organ bank notified?: Yes Advance directives: No
--- NOTE | 2024-09-15 21:50 | PC.NURSE ---
Donor Hotline contacted.
--- NOTE | 2024-09-15 22:30 | PC.NURSE ---
[employer] contacted - as families choice.
--- NOTE | 2024-09-15 22:30 | PC.NURSE ---
Patient at 2123, Patient was cleaned, IVs present and kim catheter were discontinued.
--- NOTE | 2024-09-15 23:32 | PC.NURSE ---
Remain picker tender by [employer].
--- NOTE | 2024-09-16 16:21 | DES_ITS ---
<Statement entered by Jaiden Valencia MD - 09/16/24 16:43> I saw and examined the patient, and I agree with current management stated by Dr Blake MD,PGY1. Plan of care was discussed with the attending physician and resident physician. Disclaimer: Despite multiple revisions, due to the dictation software being used, the document bellow may not be free of grammatical errors including phonetic/typographic errors. However, this does not deter from our commitment to providing health care in the patient's best interest in mind. Dr. 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 Per patient's daughter patient started having cough about 2 days ago, complained of feeling tired, was lethargic yesterday, was unable to get out of bed, was given Robitussin before going to bed, the next morning patient's daughter noted that she did not get up and was found to be unresponsive laying in bed, coffee ground drool noted at mouth and patient's daughter called EMS. Per EMS signoff on their arrival patient was unresponsive, febrile, patient's jaw was clenched and was saturating at 68% on room air. Stated that they started bagging the patient via BVM with improvement and then patient was placed on 15 L oxy mask was found to be saturating at 97%. Overnight patient had elevated troponin of 24.485, was started on pressors Levophed, vasopressin and dobutamine. Patient was noted to be in V. tach, patient's primary decision-maker was informed. Patient's family at bedside requested to transition patient to comfort measures. Family's decision was respected and patient was transition to comfort care, all treatment was discontinued and patient was extubated. Patient placed on morphine drip, downgraded to MedSurg. At 8:40 PM: Patient became unresponsive, however family only informed the nursing staff and doctors at 9:15 PM. Patient pronounced at 21:24 PM, likely due to cardiopulmonary arrest. Next of kin/family were present at bedside. Diagnoses: #Acute Encephalopathy #History of dementia, depression #ST elevation myocardial infarction #Elevated troponin # Shock, cardiogenic versus septic. #Acute hypoxic respiratory failure #Status post-intubation 09/14 #Bibasilar pneumonia #Respiratory acidosis #Decompensated cirrhosis, MALD #Hyperbilirubinemia #Transaminitis #Thrombocytopenia #Hyperammonemia #Acute kidney injury, prerenal #Hyperosmolar hyperchloremic hypernatremia #High Anion Gap Metabolic acidosis #Lactic Acidosis #Hypercalcemia #Hyperglycemia #Hyperglycemic hyperosmolality syndrome #Diabetic ketoacidosis, moderate #Leukocytosis #Polycythemia #Thrombocytopenia #Coagulopathy #Sepsis #UTI #Pneumonia Case discussed with senior resident Dr. Valencia PGY-[address] Theresa Lozano MD PGY-1 Additional Data Attending physician: Didi Malone MD Visit Providers Provider Primary care physician: Jose Hanson MD Diagnosis Contributing Factors (1) ST elevation [place] (STEMI): (2) AMS (altered mental status): (3) Sepsis: (4) Diabetes 1.5, managed as type 2: (5) Cirrhosis of liver: (6) Lactic acid acidosis: (7) Hypernatremia: (8) Acute renal failure: Discharge Plan Plan Patient Disposition: Prescriptions/Referrals Referrals: Jose Hanson MD [Primary Care Provider] - Patient/Caregiver Discharge Instructions Print Language: Yoruba Discharge Order Discharge Orders: Discharge (Routine); Ordered 09/15/24 Ordered By: Norma Miller
== END 2024-09-15 21:24 | disposition expired | DRG 871 ==
LOC: SERX 13:34 → SERHOLD 15:28 → S2SX 16:22 → S3NX 09-15 13:14
PROVIDERS: Admitting Provider Internal Medicine; Emergency Provider Emergency Medicine; PCP Family Medicine; Visit Provider Internal Medicine
DX: A41.9 Sepsis, unspecified organism (principal); E11.10 Type 2 diabetes mellitus with ketoacidosis without coma; I21.3 ST elevation (STEMI) myocardial infarction of unspecified site; J18.9 Pneumonia, unspecified organism; J96.01 Acute respiratory failure with hypoxia; J69.0 Pneumonitis due to inhalation of food and vomit; N17.9 Acute kidney failure, unspecified; E87.0 Hyperosmolality and hypernatremia; D68.9 Coagulation defect, unspecified; N39.0 Urinary tract infection, site not specified; K76.6 Portal hypertension; K74.60 Unspecified cirrhosis of liver; K21.9 Gastro-esophageal reflux disease without esophagitis; Z66 Do not resuscitate; Z91.148 Patient's other noncompliance with medication regimen for other reason; I48.0 Paroxysmal atrial fibrillation; K75.81 Nonalcoholic steatohepatitis (NASH); F03.90 Unspecified dementia, unspecified severity, without behavioral disturbance, psychotic disturbance, mood disturbance, and anxiety; K76.82 Hepatic encephalopathy; F32.A Depression, unspecified; E87.8 Other disorders of electrolyte and fluid balance, not elsewhere classified; E83.52 Hypercalcemia; E86.0 Dehydration; D75.1 Secondary polycythemia; D69.59 Other secondary thrombocytopenia; I46.9 Cardiac arrest, cause unspecified; D69.6 Thrombocytopenia, unspecified; Z51.5 Encounter for palliative care
CPT/HCPCS: 36415; 36600; 70450; 71045; 71250; 74176; 80053; 80307; 80320; 81001; 82010; 82140; 82270; 82803; 83605; 83735; 83880; 84100; 84145; 84295; 84484; 85025; 85610; 85730; 86900; 86901; 87040; 87077; 87081; 87086; 87186; 87205; 87400; 87811; 93005; 94002; 94003; J0282; J0696; J1250; J1643; J1644; J1815; J2060; J2270; J2470; J2543; J2598; J3370; J3490; J7030; J7050; J7120; A9270; G0480